=== PATIENT | female | born 1970 | race Caucasian/White ===

== ENCOUNTER 2019-10-20 11:25 | Emergency (ER) | payer OTHER, SELFPAY ==
[2019-10-20 11:44] VITALS: BP 133/88; PULSE 75; RESP 16; TEMP 36.9; O2SAT 100
--- NOTE | 2019-10-20 11:44 | ED.EYEPROB ---
HPI - Eye Problem General Chief complaint: Eye Problems Stated complaint: right pink eye/itchy History of Present Illness HPI Narrative: This is a 49-year-old female comes in complaining of left conjunctivitis patient states that she had a virtual visit with her primary care provider on Monday was prescribed tobramycin. Patient states that the symptoms have not gotten any better woke up this morning her eyes itchy still swollen and red and draining. Patient states she had to use a warm washcloth so that she was able to open her eye patient wanted to make sure that she did not need a different kind of medication because she did not feel like this was working and I was getting worse Related Data Home Medications Medication Instructions Recorded Confirmed hydroxyzine HCl 25 mg tablet 25 mg PO BID PRN tablet 07/26/19 carbamazepine mg PO 10/20/19 clonazepam 10/20/19 levothyroxine 10/20/19 sertraline mg 10/20/19 tobramycin 10/20/19 triamterene-hydrochlorothiazid tablet 10/20/19 Allergies Allergy/AdvReac Type Severity Reaction Status Date / Time Penicillins Allergy Intermediate Rash Verified 10/18/19 14:47 Review of Systems Review of Systems: Narrative: CONSTITUTIONAL: Denies fever, chills, or sweats. EYES: Reports visual changes, redness, or discharge. ENT: Denies rhinorrhea, congestion, sore throat, or otalgia. CARDIOVASCULAR:Denies chest pain, palpitations, or edema. RESPIRATORY: Denies cough or dyspnea. GASTROINTESTINAL: Denies abdominal pain, nausea, vomiting, or diarrhea. GENITOURINARY: Denies dysuria or hematuria. SKIN:[Denies rash or itching. MUSCULOSKELETAL:Denies back pain, joint pain, or myalgia. NEUROLOGIC: Denies headache, numbness, or weakness. PSYCHIATRIC:Denies anxiety or depression [facility] Past Medical History Medical History (Updated 10/20/19 @ 11:53 by Carolina Lechuga NP) Annual visit for general adult medical examination with abnormal findings (~2013) Generalized anxiety disorder (~2008) Left foot pain (~08/11/15) Surgical History Surgical History (System 10/09/19 @ 17:25 by Aziza Morales) History of thyroidectomy, total (~2001) S/P thyroidectomy (~2001) Family History Family History (System 10/09/19 @ 17:25 by Aziza Morales) Mother Family history of atrial fibrillation, Onset Age: 72 Father Hypertension Heart valve replaced, Onset Age: 72 Social History Social History (System 10/09/19 @ 17:25 by Aziza Morales) Social History: smoking 2-10 cigarettes/day since ~2000 Smoking packs per day: 0.5 Smoking cigarettes per day: 10.0 Years smoked: 19 Smoking pack-years: 9.50 Smoking status: Current every day smoker Tobacco type: cigarettes Second hand tobacco smoke exposure: No Alcohol intake: never Substance use: never Substance use type: does not use Additional living arrangements comments: daughter, single mom; sexually active; has advance directive (per 10/02/2018 health hx form) Gender identity (if verbalized by the patient): Female Spiritual care concerns: No Agree to blood products: Yes Comments At time as signature, I have reviewed and agree with nursing past medical, social, surgical and family history. Please see nursing chart for further information. There is no relevant family history pertinent to the presenting complaint. Exam Narrative: Exam Narrative: GENERAL:Well-appearing, well-nourished, and in no acute distress. HEAD:Normocephalic, atraumatic. EYES: PERRLA and EOMI. left erythema with periorbital slight swelling, clear to yellowish drainage ENT: Nares clear, no rhinorrhea or epistaxis. Mucous membranes moist. NECK: Supple. CHEST: Clear to auscultation. No respiratory distress. HEART: Regular rate and rhythm. No murmur heard. Normal peripheral pulses. ABDOMEN: Soft, nontender, nondistended, normal active bowel sounds. EXTREMITIES: Normal range of motion. No edema. SKIN: Warm, dry, no rash. CON[facility]
== END 2019-10-20 11:55 | disposition home or self-care (01) ==
PROVIDERS: Emergency Provider Nurse Practitioner Family; PCP Family Medicine
DX: H10.31 Unspecified acute conjunctivitis, right eye (principal); F17.210 Nicotine dependence, cigarettes, uncomplicated; E89.0 Postprocedural hypothyroidism; I10 Essential (primary) hypertension; Z85.850 Personal history of malignant neoplasm of thyroid
CPT/HCPCS: 99213; G0463

== ENCOUNTER 2020-06-29 15:08 | Outpatient (CLI) | payer OTHER, SELFPAY ==
[2020-06-29 16:01] LABS: Alanine Aminotransferase 21 U/L (4-35); Albumin Level 4.5 g/dL (3.5-5.1); Alkaline Phosphatase 98 U/L (38-126); Anion Gap 6 mmol/L (8-16); Aspartate Amino Transferase 27 U/L (14-36); Bilirubin,Total 0.4 mg/dL (0.2-1.3); Blood Urea Nitrogen 20 mg/dL (7-17); Calcium 9.4 mg/dL (8.4-10.2); Carbon Dioxide 32 mmol/L (22-30); Chloride 102 mmol/L (98-107); Cholesterol 252 mg/dL (0-200); Estimated Glomerular Filt Rate > 60; Glucose 110 mg/dL (65-105); HDL Direct 78 mg/dL; Potassium 3.9 mmol/L (3.4-5.0); Sodium 140 mmol/L (137-145); Triglycerides 142 mg/dL (<150)
[2020-06-29 16:12] LABS: LDL Cholesterol Direct 150 mg/dL
[2020-06-29 16:29] LABS: Free T4 Free Thyroxine 1.15 ng/mL (0.78-2.19)
[2020-06-29 16:31] LABS: Thyroid Stimulating Hormone 0.034 uIU/mL (0.465-4.680)
[2020-07-02 06:08] LABS: Vitamin D 1,25 (OH)2 Total 44 pg/mL (18-72); Vitamin D2 1,25 (OH)2 <8 pg/mL; Vitamin D3 1,25 (OH)2 44 pg/mL
== END 2020-06-29 15:09 | disposition home or self-care (01) ==
PROVIDERS: PCP Family Medicine; Visit Provider Nurse Practitioner Family
DX: E55.9 Vitamin D deficiency, unspecified (principal); I10 Essential (primary) hypertension; E03.9 Hypothyroidism, unspecified; E78.5 Hyperlipidemia, unspecified; E07.9 Disorder of thyroid, unspecified
CPT/HCPCS: 36415; 80053; 80061; 82652; 84439; 84443

== ENCOUNTER 2020-07-16 06:54 | Outpatient (NON) | payer OTHER, SELFPAY ==
[2020-07-16 21:48] LABS: SARS-CoV-2 RNA PCR Negative
== END 2020-07-16 06:55 ==
LOC: ANHCOVIDDT 07:00
PROVIDERS: PCP Family Medicine; Visit Provider Nurse Practitioner
DX: R68.89 Other general symptoms and signs (principal); Z20.828 Contact with and (suspected) exposure to other viral communicable diseases
CPT/HCPCS: 87635; C9803; U0003

== ENCOUNTER 2021-03-17 08:14 | Emergency (ER) | payer OTHER, SELFPAY ==
[2021-03-17 08:24] VITALS: BP 127/81; PULSE 79; RESP 16; TEMP 36.7; O2SAT 99
--- NOTE | 2021-03-17 08:30 | ED.URI ---
HPI - URI/Sore Throat General Chief Complaint: Upper Respiratory Infection Stated Complaint: sore throat Time Seen by Provider: 03/17/21 08:30 Source: patient Mode of arrival: ambulatory Limitations: no limitations History of Present Illness HPI Narrative: Ruthie Clark is a 51 yo female with PMH of hypertension , hypothyroid , obstructive sleep apnea ,[facility] of symptoms of sore throat and increasing swollen lymph glands. she states that she started to have symptoms on Monday and it gradually worsened; hard to swallow, no fever, states she is only able to eat broth and drink water Related Data Home Medications Medication Instructions Recorded Confirmed levothyroxine 200 mcg tablet 200 mcg PO DAILY tablet 03/15/21 03/17/21 triamterene 37.5 1 tablet PO DAILY tablet 03/15/21 03/17/21 mg-hydrochlorothiazide 25 mg tablet Allergies Allergy/AdvReac Type Severity Reaction Status Date / Time Penicillins Allergy Intermediate Rash Verified 03/15/21 15:18 Review of Systems Review of Systems: CONSTITUTIONAL: Denies fever, chills, sweats. EYES: Denies visual changes, redness, discharge. ENT: Denies rhinorrhea, congestion, has sore throat, otalgia. Has swollen submandibular lymph node CARDIOVASCULAR: Denies chest pain, palpitations, edema. RESPIRATORY: Denies dyspnea, wheezing, cough GASTROINTESTINAL: Denies abdominal pain, nausea, vomiting, diarrhea. GENITOURINARY: Denies dysuria, hematuria, abnormal discharge SKIN: Denies rash or itching. NEUROLOGIC: Denies numbness, or focal weakness. PSYCHIATRIC: Denies anxiety or depression. [facility] Past Medical History Medical History (Updated 03/17/21 @ 08:55 by Amina Bai CNP) Class 2 severe obesity with serious comorbidity and body mass index (BMI) of 36.0 to 36.9 in adult (~2001) Dependence on other enabling machines and devices (~2015) Disorder of thyroid, unspecified (~2001) Essential (primary) hypertension (~2008) Generalized anxiety disorder (~2008) Hypothyroidism, unspecified (~2001) Left foot pain (~08/11/15) Major depress, part remis (~2008) Nicotine dependence, unspecified, uncomplicated (~2009) PETE on CPAP (~01/11/16) sleep study: 01/11/2016: ESS: 10; AHI: 9; 43 snoring events; 60 O2 desaturations: index=8; 63 inches: 196#; BMI 34.7 Seizure disorder (~1978) Surgical History Surgical History History of thyroidectomy, total (~2001) S/P thyroidectomy (~2001) Family History Family History Mother Family history of atrial fibrillation, Onset Age: 72 Father Hypertension Heart valve replaced, Onset Age: 72 Social History Social History Social History: smoking 2-10 cigarettes/day since ~1999 Smoking packs per day: 0.5 Smoking cigarettes per day: 10.0 Years smoked: 19 Smoking pack-years: 9.50 Smoking status: Current every day smoker Tobacco type: cigarettes Second hand tobacco smoke exposure: No Alcohol intake: never Substance use: never Substance use type: does not use Additional living arrangements comments: daughter, single mom; sexually active; has advance directive (per 10/02/2018 health hx form) Gender identity (if verbalized by the patient): Female Spiritual care concerns: No Agree to blood products: Yes Comments At time of signature, I agree with nursing past medical, surgical, social and family history. There is no relevant family history pertinent to the presenting complaint. Exam Narrative: GENERAL: This is a well-nourished, well-developed patient, in mild distress. HEAD: normocephalic, atraumatic. EYES: Sclera clear/white. Vision is grossly intact. EARS: External ears normal, . Hearing grossly intact. Ear canals clear NOSE: External nose normal without nasal discharge, nares without redness, no rhinorrhea. THRO
[2021-03-17] MEDS: predniSONE 20 MG TABLET 60 MG PO (09:05)
== END 2021-03-17 09:08 | disposition home or self-care (01) ==
PROVIDERS: Emergency Provider Nurse Practitioner
DX: J02.9 Acute pharyngitis, unspecified (principal); F17.210 Nicotine dependence, cigarettes, uncomplicated; G47.30 Sleep apnea, unspecified; I10 Essential (primary) hypertension; E03.9 Hypothyroidism, unspecified; E07.9 Disorder of thyroid, unspecified; F41.1 Generalized anxiety disorder; F32.9 Major depressive disorder, single episode, unspecified; G40.909 Epilepsy, unspecified, not intractable, without status epilepticus
CPT/HCPCS: 87081; 87880; 99213; G0463; J7512

== ENCOUNTER → 2021-03-18 08:52 | Outpatient (CLI) | payer OTHER, SELFPAY ==
[2021-03-19 18:14] LABS: SARS-CoV-2 RNA PCR Negative
== END ==
PROVIDERS: PCP Family Medicine; Visit Provider Family Medicine
DX: J02.9 Acute pharyngitis, unspecified (principal); Z20.822 Contact with and (suspected) exposure to COVID-19
CPT/HCPCS: C9803; U0003; U0005

== ENCOUNTER 2021-03-23 16:36 | Outpatient (CLI) | payer OTHER, SELFPAY ==
--- NOTE | ~2021-03-23 | MM_ITS ---
EXAMINATION: MM screening cameron BI w carlene HISTORY: Screening mammogram TECHNIQUE: Craniocaudal and mediolateral oblique 3-D tomosynthesis images were obtained and synthetic 2-D images were generated. CAD analysis was submitted and interpreted. COMPARISON: 08/22/2018, 03/10/2015, 10/15/2013 bilateral digital screening mammogram examinations BREAST PARENCHYMAL COMPOSITION: The breasts are heterogeneously dense, which may obscure small masses . FINDINGS: There is no evidence of suspicious mass, calcification, or architectural distortion to sugg est malignancy in either breast. There has been no suspicious interval change. IMPRESSION: 1. No mammographic evidence of malignancy. 2. Recommend routine screening mammography in one year. BI-RADS Category 1: Negative Reviewed, dictated and finalized at location A.
--- NOTE | ~2021-03-23 | US_ITS ---
EXAMINATION: US pelvic complete w TV DATE: 03/23/2021 17:36 INDICATION: Pelvic pain Comparison:No prior studies for comparison. TECHNIQUE: Multiple transabdominal and endovaginal sonographic images of the pelvis performed. FINDINGS: The uterus measures 5.7 x 4.1 x 5.1 cm. There are multiple hypoechoic masses of the uterus, consistent with fibroids, largest measuring 2.6 cm. The endometrial complex measures 4 mm. The right ovary measures 3.2 x 2.5 x 2.2 cm and the left ovary measures 3.2 x 3.3 x 3.4 cm. There are follicular changes. There is a 3.1 cm left ovarian cyst. There is no free fluid in the pelvis. There are no abnormal masses seen on either side. IMPRESSION: 1. Left ovarian cyst measuring 3.1 cm. 2: Uterine fibroids, largest measuring 2.6 cm maximum dimension. Reviewed, dictated and finalized at location A.
== END 2021-03-23 16:37 | disposition home or self-care (01) ==
LOC: ANHIMG 16:37
PROVIDERS: PCP Family Medicine; Visit Provider Nurse Practitioner
DX: Z12.31 Encounter for screening mammogram for malignant neoplasm of breast (principal); R10.2 Pelvic and perineal pain; N83.202 Unspecified ovarian cyst, left side; D25.9 Leiomyoma of uterus, unspecified
CPT/HCPCS: 76830; 76856; 77063; 77067

== ENCOUNTER 2021-07-02 07:50 | Outpatient (CLI) | payer OTHER, SELFPAY ==
[2021-07-02 08:09] LABS: Basophils Percent Auto 0.6 % (0.2-1.2); Eosinophils Absolute Auto 0.1 K/mm3 (0-0.3); Hematocrit 41.5 % (37.0-47.0); Hemoglobin 13.7 g/dL (12.0-15.0); Immature Granulocyte Absolute 0.02 K/mm3 (0.00-0.031); Immature Granulocyte Percent A 0.4 % (0-0.5); Lymphocytes Absolute Auto 2.19 K/mm3 (0.9-3.2); Mean Corpuscular Hemoglobin 29.4 pg (26-34); Mean Corpuscular Volume 89.1 fl (80-100); Mean Platelet Volume 9.7 fl (7.4-10.4); Monocytes Absolute Auto 0.4 K/mm3 (0.1-0.6); Monocytes Percent Auto 7.9 % (2.6-8.5); Neutrophils Absolute Auto 2.4 K/mm3 (1.3-6.7); Neutrophils Percent Auto 46.1 % (45.5-73.1); Platelet Count Result 237 k/mm3 (150-375); Red Blood Count 4.66 M/mm3 (4.2-5.4); White Blood Count 5.1 K/mm3 (4.5-10.0)
[2021-07-02 08:22] LABS: Alanine Aminotransferase 18 U/L (4-35); Albumin Level 4.2 g/dL (3.5-5.1); Alkaline Phosphatase 101 U/L (38-126); Anion Gap 8 mmol/L (8-16); Aspartate Amino Transferase 21 U/L (14-36); Bilirubin,Total 0.3 mg/dL (0.2-1.3); Blood Urea Nitrogen 18 mg/dL (7-17); Calcium 9.3 mg/dL (8.4-10.2); Carbon Dioxide 26 mmol/L (22-30); Chloride 106 mmol/L (98-107); Cholesterol 260 mg/dL (0-200); Estimated Glomerular Filt Rate > 60; Glucose 107 mg/dL (65-110); HDL Direct 62 mg/dL; Sodium 140 mmol/L (137-145); Triglycerides 207 mg/dL (<150)
[2021-07-02 08:33] LABS: LDL Cholesterol Direct 138 mg/dL
[2021-07-02 09:06] LABS: Vitamin D 25 Hydroxy 42.3 ng/mL
[2021-07-02 09:19] LABS: Thyroid Stimulating Hormone Reflex < 0.015 uIU/mL (0.465-4.68)
[2021-07-02 10:02] LABS: Free T4 Free Thyroxine Reflex 1.17 ng/dL (0.78-2.19)
[2021-07-02 13:07] LABS: Total Triiodothyronine (T3) 1.33 NG/ML (0.97-1.69)
== END 2021-07-02 07:51 | disposition home or self-care (01) ==
LOC: ANHLAB 07:53
PROVIDERS: PCP Family Medicine; Visit Provider Family Medicine
DX: E55.9 Vitamin D deficiency, unspecified (principal); E03.9 Hypothyroidism, unspecified; G40.909 Epilepsy, unspecified, not intractable, without status epilepticus; E78.5 Hyperlipidemia, unspecified; I10 Essential (primary) hypertension; Z00.00 Encounter for general adult medical examination without abnormal findings
CPT/HCPCS: 36415; 80053; 80061; 82306; 84439; 84443; 84480; 85025

== ENCOUNTER 2021-09-20 00:05 | Day surgery (SDC) | payer OTHER, SELFPAY ==
[2021-09-08 14:25] VITALS: BMI 32.8
--- NOTE | 2021-09-19 11:08 | WPDANESEPP ---
Anes - Eval Pre Procedure Procedure: Operation Date: 09/20/21 09:30 Proposed Procedures p Screening Colonoscopy - Tony Marcano MD Date/Time: 09/19/21 11:08 Pre Op Diagnosis: neoplasm screening Patient Data Age: 51 Gender: F Height: 1.6 m Weight: 84 kg Allergies Allergy/AdvReac Type Severity Reaction Status Date / Time Penicillins Allergy Intermediate Rash Verified 09/08/21 14:20 Home Medications Medication Instructions Recorded Confirmed Type triamterene 37.5 1 tablet PO DAILY #90 tablet 04/27/21 09/08/21 Rx mg-hydrochlorothiazide 25 mg tablet atorvastatin 10 mg tablet 10 mg PO QHS #90 tablet 07/05/21 09/08/21 Rx carbamazepine 200 mg 400 mg PO Q12H #360 cap 07/12/21 09/08/21 Rx capsule,extended release [id number] levothyroxine 200 mcg tablet 200 mcg PO DAILY #90 tablet 07/26/21 09/08/21 Rx clonazepam 2 mg tablet 1 mg PO BID PRN #90 tablet 08/02/21 09/08/21 Rx sertraline 100 mg tablet 100 mg PO BID #180 tablet 08/02/21 09/08/21 Rx cyclobenzaprine 5 mg tablet See Rx Instructions PO TID PRN 09/01/21 09/08/21 Rx #180 tablet hydroxyzine HCl 25 mg PO DAILY 09/08/21 09/08/21 History Patient hx anesthesia problems: none Family hx anesthesia problems: none Results Review: All pre-operative results and documents have been reviewed as part of the pre-operative evaluation. [facility], [facility] Past Medical History Medical History (Updated 09/19/21 @ 11:12 by Zonia Silva CRNA) Chronic low back pain Dependence on other enabling machines and devices (~2015) Dyslipidemia Essential (primary) hypertension (~2008) Generalized anxiety disorder (~2008) History of thyroid cancer Hypothyroidism, unspecified (~2001) Left foot pain (~08/11/15) Major depress, part remis (~2008) Nicotine dependence, unspecified, uncomplicated (~2009) PETE (obstructive sleep apnea) PETE on CPAP (~01/11/16) sleep study: 01/11/2016: ESS: 10; AHI: 9; 43 snoring events; 60 O2 desaturations: index=8; 63 inches: 196#; BMI 34.7 Seizure disorder (~1978) petite mal Surgical History Surgical History History of thyroidectomy, total (~2001) Family History Family History Mother Family history of atrial fibrillation, Onset Age: 72 Father Hypertension Heart valve replaced, Onset Age: 72 Social History Social History Social History: smoking 2-10 cigarettes/day since ~1999 Smoking packs per day: 0.25 Smoking cigarettes per day: 5.0 Years smoked: 15 Smoking pack-years: 3.75 Smoking status: Current every day smoker Tobacco type: cigarettes Second hand tobacco smoke exposure: No Alcohol intake: never Substance use: never Substance use type: does not use Additional living arrangements comments: daughter, single mom; sexually active; has advance directive (per 10/02/2018 health hx form) Gender identity (if verbalized by the patient): Female Spiritual care concerns: No Agree to blood products: Yes Exam Day of Procedure 09/19/21 11:08
[2021-09-20 08:30] VITALS: BP 130/80; PULSE 77; RESP 20; TEMP 36.4; O2SAT 100; BMI 33.2
[2021-09-20] MEDS: LACTATED RINGERS 1,000 ML 150 ML IV CONT (08:48)
--- NOTE | 2021-09-20 08:57 | WPDGICN ---
Assessment and Plan Assessment and plan (1) Encounter for screening colonoscopy: Code(s): Z12.11 - Encounter for screening for malignant neoplasm of colon Status: Acute Assessment and Plan: Patient presents for screening colonoscopy. Appears to be at average risk for colon polyps. Further recommendations may be given after endoscopy. GI Consult Note Consult date/time: 09/20/21 08:57 HPI: Ruthie Clark is a 51 year old female Presents for screening colonoscopy. Patient's current weight appetite and bowel movements are normal. She denies abdominal pain. She has had no bleeding. Family history is noncontributory. [facility] Past Medical History Medical History (Updated 09/20/21 @ 08:58 by Tony Marcano MD) Chronic low back pain Dependence on other enabling machines and devices (~2015) Dyslipidemia Essential (primary) hypertension (~2008) Generalized anxiety disorder (~2008) History of thyroid cancer Hypothyroidism, unspecified (~2001) Left foot pain (~08/11/15) Major depress, part remis (~2008) Nicotine dependence, unspecified, uncomplicated (~2009) PETE (obstructive sleep apnea) PETE on CPAP (~01/11/16) sleep study: 01/11/2016: ESS: 10; AHI: 9; 43 snoring events; 60 O2 desaturations: index=8; 63 inches: 196#; BMI 34.7 Seizure disorder (~1978) petite mal Surgical History Surgical History History of thyroidectomy, total (~2001) Family History Family History Mother Family history of atrial fibrillation, Onset Age: 72 Father Hypertension Heart valve replaced, Onset Age: 72 Social History Social History Social History: smoking 2-10 cigarettes/day since ~1999 Smoking packs per day: 0.25 Smoking cigarettes per day: 5.0 Years smoked: 15 Smoking pack-years: 3.75 Smoking status: Current every day smoker Tobacco type: cigarettes Second hand tobacco smoke exposure: No Alcohol intake: never Substance use: never Substance use type: does not use Living arrangements: with family Additional living arrangements comments: daughter, single mom; sexually active; has advance directive (per 10/02/2018 health hx form) Gender identity (if verbalized by the patient): Female Spiritual care concerns: No Agree to blood products: Yes Meds Home Medications and Allergies Home Medications Medication Instructions Recorded Confirmed Type triamterene 37.5 1 tablet PO DAILY #90 tablet 04/27/21 09/08/21 Rx mg-hydrochlorothiazide 25 mg tablet atorvastatin 10 mg tablet 10 mg PO QHS #90 tablet 07/05/21 09/08/21 Rx carbamazepine 200 mg 400 mg PO Q12H #360 cap 07/12/21 09/08/21 Rx capsule,extended release [id number] levothyroxine 200 mcg tablet 200 mcg PO DAILY #90 tablet 07/26/21 09/08/21 Rx clonazepam 2 mg tablet 1 mg PO BID PRN #90 tablet 08/02/21 09/08/21 Rx sertraline 100 mg tablet 100 mg PO BID #180 tablet 08/02/21 09/08/21 Rx cyclobenzaprine 5 mg tablet See Rx Instructions PO TID PRN 09/01/21 09/08/21 Rx #180 tablet hydroxyzine HCl 25 mg PO DAILY 09/08/21 09/08/21 History Allergies Allergy/AdvReac Type Severity Reaction Status Date / Time Penicillins Allergy Intermediate Rash Verified 09/20/21 08:27 Vital Signs Vital Signs - 24 hr 09/20/21 08:30 Temperature 97.5 F L Pulse Rate 77 Respiratory Rate 20 Blood Pressure 130/80 Pulse Oximetry 100 Exam Narrative: Physical exam reveals patient to be alert. Vital signs stable. HEENT exam is unremarkable. Patient is anicteric. Lungs are clear to auscultation and percussion. Heart is without murmur or extra sounds. Abdominal exam bowel sounds are present soft nontender with no hepatosplenomegaly. Digital external rectal exam is normal.
--- NOTE | 2021-09-20 09:00 | WPDANESEFPP ---
Anes - Eval Final PreProcedure Day of Procedure 09/20/21 09:00 Patient weight: obese Heart: regular rate and rhythm Lungs: clear to auscultation and normal air movement Airway: Mallampati scale class II Neurological: alert and oriented Last oral intake: >/= 8 hours ASA classification: III Emergent: no Anesthetic plan: proceed Anesthesia type and monitoring: general GIVS and standard monitoring Results Review: All pre-operative results and documents have been reviewed as part of the pre-operative evaluation. Informed Consent: The patient's anesthetic plan and its attendant risks and benefits were discussed with the patient/family/POA. Questions were solicited and answers provided to the satisfaction of the patient/family/POA.
[2021-09-20 09:43] VITALS: BP 107/68; PULSE 66; RESP 18; O2SAT 100
[2021-09-20 09:53] VITALS: BP 116/71; PULSE 64; RESP 15; O2SAT 100
[2021-09-20 10:03] VITALS: BP 137/87; PULSE 68; RESP 19; O2SAT 100
== END 2021-09-20 10:10 | disposition home or self-care (01) ==
PROVIDERS: PCP Family Medicine; Visit Provider Internal Medicine Gastroenterology
PROC: 0DJD8ZZ Inspection of Lower Intestinal Tract, Via Natural or Artificial Opening Endoscopic (ICD-10-PCS; CPT 45378; principal; 2021-09-20 09:30)
DX: Z12.11 Encounter for screening for malignant neoplasm of colon (principal); K62.1 Rectal polyp; K64.8 Other hemorrhoids; E66.9 Obesity, unspecified; Z68.33 Body mass index [BMI] 33.0-33.9, adult; E78.5 Hyperlipidemia, unspecified; I10 Essential (primary) hypertension; F41.1 Generalized anxiety disorder; Z85.850 Personal history of malignant neoplasm of thyroid; F32.9 Major depressive disorder, single episode, unspecified; G47.33 Obstructive sleep apnea (adult) (pediatric); G40.909 Epilepsy, unspecified, not intractable, without status epilepticus; E89.0 Postprocedural hypothyroidism; F17.210 Nicotine dependence, cigarettes, uncomplicated
CPT/HCPCS: 45380; 88305; J2704; J7120

== ENCOUNTER 2021-10-09 14:09 | Emergency (ER) | payer OTHER, SELFPAY ==
--- NOTE | ~2021-10-09 | XR_ITS ---
EXAMINATION: XR knee RT min 4V EXAM DATE: 10/09/2021 14:51 INDICATION: No known recent injury provided at this time. Pain of the right knee medially TECHNIQUE: Right knee frontal, crosstable lateral, orthogonal oblique projections for interpretation . There is no prior study for comparison. FINDINGS: No evidence osteochondral defect or joint body in the right knee joint. There are no acut e fractures or dislocations identified. There is no subcutaneous gas. The soft tissue is unremarkab le. There are no radiopaque foreign bodies. IMPRESSION: 1. Unremarkable XR knee RT min 4V exam. Reviewed, dictated and finalized at location G.
[2021-10-09 14:13] VITALS: BP 153/91; PULSE 82; RESP 16; TEMP 36.2; O2SAT 100
--- NOTE | 2021-10-09 14:41 | ED.LOWEXIN ---
HPI - Extremity Injury (Lower) General Chief Complaint: Extremity Injury, Lower Stated Complaint: right knee pain Time Seen by Provider: 10/09/21 14:20 Source: patient Mode of arrival: ambulatory Limitations: no limitations History of Present Illness HPI Narrative: 51-year-old female with history of hypertension, dyslipidemia, petite mal seizures, hypothyroidism status post total thyroidectomy, anxiety, chronic low back pain presents today with complaints of right knee pain that started morning when she woke up. Patient states on Monday she did slip on a rug but did not fall. Patient denies pain anywhere else. Patient states aggravated with certain movements and palpation. Range of motion at current time is normal. Denies tingling and numbness to extremity. Related Data Home Medications Medication Instructions Recorded Confirmed hydroxyzine HCl 25 mg PO DAILY 09/08/21 09/20/21 Allergies Allergy/AdvReac Type Severity Reaction Status Date / Time Penicillins Allergy Intermediate Rash Verified 09/20/21 14:53 Review of Systems Review of Systems: CONSTITUTIONAL: Denies fever, chills, or sweats. EYES: Denies visual changes, redness, or discharge. ENT: Denies rhinorrhea, congestion, sore throat, or otalgia. CARDIOVASCULAR: Denies chest pain, palpitations, or edema. RESPIRATORY: Denies cough or dyspnea. GASTROINTESTINAL: Denies abdominal pain, nausea, vomiting, or diarrhea. GENITOURINARY: Denies dysuria or hematuria. SKIN: Denies rash or itching. MUSCULOSKELETAL: Right knee pain denies back pain or myalgia. NEUROLOGIC: Denies headache, numbness, dizziness, or weakness. PSYCHIATRIC: Denies anxiety or depression. [facility] Past Medical History Medical History Chronic low back pain Dependence on other enabling machines and devices (~2015) Dyslipidemia Essential (primary) hypertension (~2008) Generalized anxiety disorder (~2008) History of thyroid cancer Hypothyroidism, unspecified (~2001) Left foot pain (~08/11/15) Major depress, part remis (~2008) Nicotine dependence, unspecified, uncomplicated (~2009) PETE (obstructive sleep apnea) PETE on CPAP (~01/11/16) sleep study: 01/11/2016: ESS: 10; AHI: 9; 43 snoring events; 60 O2 desaturations: index=8; 63 inches: 196#; BMI 34.7 Seizure disorder (~1978) petite mal Surgical History Surgical History History of thyroidectomy, total (~2001) Family History Family History Mother Family history of atrial fibrillation, Onset Age: 72 Father Hypertension Heart valve replaced, Onset Age: 72 Social History Social History Social History: smoking 2-10 cigarettes/day since ~1999 Smoking packs per day: 0.25 Smoking cigarettes per day: 5.0 Years smoked: 15 Smoking pack-years: 3.75 Tobacco type: cigarettes Second hand tobacco smoke exposure: No Alcohol intake: never Substance use: never Substance use type: does not use Additional living arrangements comments: daughter, single mom; sexually active; has advance directive (per 10/02/2018 health hx form) Gender identity (if verbalized by the patient): Female Spiritual care concerns: No Agree to blood products: Yes Exam Narrative: GENERAL: Well-appearing, well-nourished, and in no acute distress. HEAD: Normocephalic, atraumatic. EYES: PERRLA and EOMI. NECK: Supple. No adenopathy or masses. CHEST: Clear to auscultation. No respiratory distress. No wheezes rales or rhonchi HEART: Regular rate and rhythm. No murmur heard. Normal peripheral pulses. EXTREMITIES: Tenderness to right medial knee. Patellar stable. Anterior posterior drawer negative. Normal range of motion. No edema. SKIN: Warm, dry, no rash. NEURO: No focal deficits. Alert and oriented x3. PSYCH: Normal mood and a
[2021-10-09] MEDS: ACETAMINOPHEN 500 MG TABLET 1000 MG PO (15:28)
[2021-10-09] MEDS: KETOROLAC 10 MG TABLET PO (15:28)
== END 2021-10-09 15:54 | disposition home or self-care (01) ==
PROVIDERS: Emergency Provider Nurse Practitioner Family; PCP Family Medicine
DX: M25.561 Pain in right knee (principal); I10 Essential (primary) hypertension; E78.5 Hyperlipidemia, unspecified; E89.0 Postprocedural hypothyroidism; Z85.850 Personal history of malignant neoplasm of thyroid; G47.33 Obstructive sleep apnea (adult) (pediatric); F17.210 Nicotine dependence, cigarettes, uncomplicated; F41.1 Generalized anxiety disorder; F32.4 Major depressive disorder, single episode, in partial remission
CPT/HCPCS: 73564; 99283; A9270

== ENCOUNTER 2021-10-20 08:12 | Outpatient (CLI) | payer OTHER, SELFPAY ==
[2021-10-20 08:44] LABS: Alanine Aminotransferase 19 U/L (4-35); Albumin Level 4.5 g/dL (3.5-5.1); Alkaline Phosphatase 121 U/L (38-126); Anion Gap 4 mmol/L (8-16); Aspartate Amino Transferase 26 U/L (14-36); Bilirubin,Total 0.3 mg/dL (0.2-1.3); Blood Urea Nitrogen 20 mg/dL (7-17); Calcium 8.6 mg/dL (8.4-10.2); Carbon Dioxide 28 mmol/L (22-30); Chloride 106 mmol/L (98-107); Cholesterol 234 mg/dL (0-200); Estimated Glomerular Filt Rate > 60; Glucose 98 mg/dL (65-110); HDL Direct 74 mg/dL; Sodium 138 mmol/L (137-145); Triglycerides 120 mg/dL (<150)
[2021-10-20 09:04] LABS: LDL Cholesterol Direct 112 mg/dL
[2021-10-20 09:21] LABS: Thyroid Stimulating Hormone Reflex 0.639 uIU/mL (0.465-4.68)
== END 2021-10-20 08:13 | disposition home or self-care (01) ==
LOC: ANHLAB 08:15
PROVIDERS: PCP Family Medicine; Visit Provider Family Medicine
DX: F41.1 Generalized anxiety disorder (principal); E03.9 Hypothyroidism, unspecified; I10 Essential (primary) hypertension; E78.5 Hyperlipidemia, unspecified
CPT/HCPCS: 36415; 80053; 80061; 84443

== ENCOUNTER 2021-10-25 13:58 | Outpatient (CLI) | payer OTHER, SELFPAY ==
[2021-10-25 14:22] LABS: Basophils Percent Auto 0.7 % (0.2-1.2); Eosinophils Absolute Auto 0.1 K/mm3 (0-0.3); Eosinophils Percent Auto 1.6 % (0-4.4); Hematocrit 41.6 % (37.0-47.0); Hemoglobin 13.9 g/dL (12.0-15.0); Immature Granulocyte Absolute 0.02 K/mm3 (0.00-0.031); Immature Granulocyte Percent A 0.3 % (0-0.5); Lymphocytes Absolute Auto 2.37 K/mm3 (0.9-3.2); Lymphocytes Percent Auto 41.4 % (18.3-44.2); Mean Corpuscular HGB Conc 33.4 g/dl (32-36); Mean Corpuscular Hemoglobin 29.8 pg (26-34); Mean Corpuscular Volume 89.3 fl (80-100); Mean Platelet Volume 9.9 fl (7.4-10.4); Monocytes Absolute Auto 0.3 K/mm3 (0.1-0.6); Monocytes Percent Auto 5.9 % (2.6-8.5); Neutrophils Absolute Auto 2.9 K/mm3 (1.3-6.7); Neutrophils Percent Auto 50.1 % (45.5-73.1); Platelet Count Result 290 k/mm3 (150-375); Red Blood Count 4.66 M/mm3 (4.2-5.4); Red Cell Distribution Width 13.5 % (11.5-14.5); White Blood Count 5.7 K/mm3 (4.5-10.0)
[2021-10-25 14:46] LABS: CRP 0.8 mg/dL (<1.0); Uric Acid 3.1 mg/dL (2.5-7.5)
[2021-10-25 15:06] LABS: Rheumatoid Factor < 8.6 IU/ML (<12)
[2021-10-25 15:08] LABS: Erythrocyte Sedimentation Rate 15 mm/hr (0-20)
== END 2021-10-25 13:59 | disposition home or self-care (01) ==
LOC: ANHLAB 14:02
PROVIDERS: PCP Family Medicine; Visit Provider Orthopaedic Surgery
DX: M17.0 Bilateral primary osteoarthritis of knee (principal)
CPT/HCPCS: 36415; 84550; 85025; 85652; 86038; 86140; 86430

== ENCOUNTER 2021-11-26 07:45 | Outpatient (RCR) | payer OTHER, SELFPAY ==
--- NOTE | 2021-11-02 17:06 | PTOPEVAL ---
Thank you for referring Ruthie Clark to [facility].? The patient is scheduled to be seen for therapy? 2 x/week for 3 weeks. Please review, sign, date and return this plan of care REZA. I agree with and certify that the following plan of care is medically necessary. Referring Physician Date Attending Provider: Jg Johnson MD Evaluation Information Problem Diagnosis right knee pain Onset 1 month Subjective Information She slipped on a rug 1 month Query Text:As Reported By Patient/ ago. 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 c/o increased swelling of knee with sitting. She reports limitations with steps, walking, steps, daily task, transfer, kneeling on knee, ADL's, household chore. She is unable to sleep due to pain. Denies any fitness program. Pain Assessment Right Knee(s) Reported Pain Level 7 Pain Description Aching,Throbbing Pain Frequency Acute Lowest Pain Intensity 7 Greatest Pain Intensity 10 Pain Aggravating Factors ADL's,Bending,Exercise/ Activity,Prolonged Position, Stair Climbing,Walking,Weight Bearing/Standing Lower Extremity Range of Motion Gross Lower Extremity Range of Motion right knee 0-115 dg Comments left knee: 0-125 dg Lower Extremity Muscle Strength Testing Gross Lower Extremity Strength left LE 5/5 except hip abd 3/5 Hip Strength Right Hip Flexion Strength 3+ Fair + Hip Extension Strength 3 Fair Hip Abduction Strength 3 Fair Knee Strength Right Knee Flexion Strength 3 Fair Knee Extension Strength 3+ Fair + Posture Standing Position Weight Distribution Weight Shifted Left,Decreased Wt.Bear on (R) Hip Posture (R) Externally Rotated Palpation Assessment Palpation right medial knee joint line, MCL, pes ansurine, inf patella Special Tests-Lower Extremity Hip Special Tests Trendelenburg Sign Positive Left,Positive Right Hip Special Test Comments SLS right: 20 sec, left: 24 sec Knee Special Tests Anterior Drawer Negative Right Valgus Stress Test Knee at 30 Degrees Positive Right Marito's Positive Right Patellofemoral Compression/Grind
--- NOTE | 2021-11-26 08:27 | PTOPEVAL ---
Physical Therapy Discharge Summary Thank you for referring Ruthie Clark to [facility] Ruthie was referred to therapy due to acute right knee pain. She has attended 7 therapy visits. She reports improved tolerance with walking, standing, steps, squats, ADL's, and daily task.She demonstrates normal right knee motion, improved right kne and hip motion and improved LE position and control with functional mobility. The [place] [employer] Osteoarthritis Index (WOMAC): 81.25% impaired at eval and 5% impaired at update. As a result of skilled therapy services Ruthie presents with improved pain, improved functional mobility, improved knee motion and strength. She has been provided a HEP and demonstrates understanding and compliance. She has met to partially met her therapy goals. She has reached maximal potential with skilled therapy services at this time. Recommend she f/u with her doctor due to continued medial knee pain. Will DC skilled therapy services at this time. Please review, sign, date and return this discharge summary REZA. I agree with and certify that the following plan of care is medically necessary. Referring Physician Date Attending Provider: Jg Johnson MD Diagnosis right knee pain Onset 1 month Subjective Information She has increased pain with Query Text:As Reported By Patient/ hip int rotation and stress on Family the inner knee region. She reports improved tolerance with walking, sitting and steps. She has not knelt on the knee yet. She will have increased pain at work with stand pivot movement on the right knee. Denies pain at night She props her leg up at work. She is performing HEP 5x/wk to 7x/wk Pain Assessment Right Knee(s) Reported Pain Level 3 Pain Description Aching,Throbbing Lowest Pain Intensity 2 Greatest Pain Intensity 3 Lower Extremity Range of Motion Gross Lower Extremity Range of Motion right knee 0-130 dg Comments Lower Extremity Muscle Strength Testing Hip Strength Right Hip Flexion Strength 4+ Good + Hip Extension Strength 4- Good - Hip Abduction Strength 3 Fair Knee Strength Right Knee Flexion Strength 4+ Good + Knee Extension Strength 4+ Good + Special Tests-Lower Extremity Hip Special Tests Trendelenburg Sign Negative Left,Positive Right Hip Special Test Comments SLS right: 30 sec, left: 30 sec functional squat: medial knee pain, hip adduction with hip valgus, forward weight shift Gait Assessment Gait Pattern Observed No Heel Strike - Left,No Heel
== END 2021-11-29 11:11 | disposition home or self-care (01) ==
LOC: ANHPT 07:45
PROVIDERS: PCP Family Medicine; Visit Provider Orthopaedic Surgery
DX: M25.561 Pain in right knee (principal)
CPT/HCPCS: 97035; 97110; 97112; 97140; 97161; 97530

== ENCOUNTER 2021-12-15 16:54 | Outpatient (CLI) | payer OTHER, MEDICAID, SELFPAY ==
--- NOTE | ~2021-12-15 | MR_ITS ---
EXAMINATION: MR knee RT wo con DATE: 12/15/2021 17:29 INDICATION: Right knee pain TECHNIQUE: Magnetic resonance imaging (MRI) of the affected knee was performed without intravenous co ntrast. Sequences included coronal PD-weighted FSE, coronal PD-weighted FS FSE, sagittal T2-weighted FSE, sagittal PD-weighted FS FSE and axial PD weighted fat saturated FSE. COMPARISON: None. FINDINGS: Medial compartment: Medial meniscus is normal. Mild chondral surface regularity along the anterior to central weightbeari ng medial femoral condyle. Small region of subarticular marrow edema at the posteromedial rim of the medial tibial plateau which could be due to was not apparent overlying chondromalacia. There is howev er subtle concavity to the articular cortex and ill-defined somewhat linear band of decreased signal underlying the articular cortex suspicious for a small stress versus insufficiency fracture. Lateral compartment: Lateral meniscus is normal. Small region of additional subarticular edema-like signal change associat ed with partial-thickness chondral fissuring at the anterior weightbearing lateral femoral condyle. R emaining cartilage in the medial compartment appears normal. Patellofemoral compartment: Partial-thickness chondral fissuring at the inferior aspect of the lateral patellar facet. Small deep chondral ulceration without degenerative subchondral changes at the inferior aspect of the medial tr ochlea. Ligaments and tendons: Anterior and posterior cruciate ligaments are normal. The medial collateral ligament and fibular ivis ateral ligament complex are normal. The extensor mechanism is normal side from small enthesophyte at the patellar insertion of the distal quadriceps tendon. The visualized medial and lateral hamstring t endons as well as the iliotibial band are normal. Fluid: Physiologic amount of fluid in the joint space. No loose osteochondral bodies identified. Osseous/other: Normal marrow signal aside from the previously noted small regions of subarticular edema-like signal change. No pathologic marrow replacing process. IMPRESSION: 1. Small focus of edema-like marrow signal change along the posterior medial rim of the medial tibial plateau with features suggesting a small subarticular insufficiency/stress fracture. Alternatively t his could be related to otherwise occult overlying chondromalacia. 2. Mild tricompartmental osteoarthritis with focal regions of chondromalacia as detailed above. Reviewed, dictated and finalized at location B. IMPRESSION: 1. Small focus of edema-like marrow signal change along the posterior medial ri m of the medial tibial plateau with features suggesting a small subarticular in sufficiency/stress fracture. Alternatively this could be related to otherwise o ccult overlying chondromalacia. 2. Mild tricompartmental osteoarthritis with focal regions of chondromalacia as detailed above.
== END 2021-12-15 16:55 | disposition home or self-care (01) ==
PROVIDERS: PCP Family Medicine; Visit Provider Orthopaedic Surgery
DX: M25.561 Pain in right knee (principal); M79.89 Other specified soft tissue disorders; M17.11 Unilateral primary osteoarthritis, right knee; M94.261 Chondromalacia, right knee
CPT/HCPCS: 73721

== ENCOUNTER 2022-01-26 07:04 | Outpatient (CLI) | payer OTHER, MEDICAID, SELFPAY ==
[2022-01-26 07:38] LABS: Hematocrit 43.5 % (37.0-47.0); Hemoglobin 14.1 g/dL (12.0-15.0); Mean Corpuscular HGB Conc 32.4 g/dl (32-36); Mean Corpuscular Hemoglobin 29.6 pg (26-34); Mean Corpuscular Volume 91.2 fl (80-100); Mean Platelet Volume 9.8 fl (7.4-10.4); Platelet Count Result 245 k/mm3 (150-375); Red Blood Count 4.77 M/mm3 (4.2-5.4); Red Cell Distribution Width 13.6 % (11.5-14.5); White Blood Count 6.4 K/mm3 (4.5-10.0)
[2022-01-26 08:22] LABS: Thyroid Stimulating Hormone 0.325 uIU/mL (0.465-4.680)
[2022-01-26 08:46] LABS: Free T4 Free Thyroxine 1.14 ng/mL (0.78-2.19); Vitamin D 25 Hydroxy 44.6 ng/mL
== END 2022-01-26 07:05 | disposition home or self-care (01) ==
PROVIDERS: PCP Family Medicine; Visit Provider Nurse Practitioner
DX: E55.9 Vitamin D deficiency, unspecified (principal); E03.9 Hypothyroidism, unspecified; R53.83 Other fatigue
CPT/HCPCS: 36415; 82306; 82607; 84439; 84443; 85027

== ENCOUNTER 2022-05-05 07:20 | Outpatient (CLI) | payer OTHER, MEDICAID, SELFPAY ==
[2022-05-05 07:53] LABS: Alanine Aminotransferase 24 U/L (6-35); Albumin Level 4.5 g/dL (3.5-5.1); Alkaline Phosphatase 110 U/L (38-126); Anion Gap 9 mmol/L (8-16); Aspartate Amino Transferase 22 U/L (14-36); Bilirubin,Total 0.3 mg/dL (0.2-1.3); Blood Urea Nitrogen 16 mg/dL (7-17); Calcium 9.2 mg/dL (8.4-10.2); Carbon Dioxide 26 mmol/L (22-30); Chloride 106 mmol/L (98-107); Estimated Glomerular Filt Rate > 60; Glucose 103 mg/dL (65-110); Potassium 3.7 mmol/L (3.4-5.0); Sodium 141 mmol/L (137-145)
[2022-05-05 08:00] LABS: NT Pro B Type Natriuretic Pept 211 pg/mL (5-100)
== END 2022-05-05 07:21 | disposition home or self-care (01) ==
PROVIDERS: PCP Family Medicine; Visit Provider Nurse Practitioner
DX: I10 Essential (primary) hypertension (principal); M79.89 Other specified soft tissue disorders
CPT/HCPCS: 36415; 80053; 83880

== ENCOUNTER 2022-05-25 07:04 | Outpatient (CLI) | payer OTHER, MEDICAID, SELFPAY ==
--- NOTE | 2022-05-25 14:45 | ECHO_ITS ---
Patient Info Name: Ruthie Clark Age: 52 years : 1970 Gender: Female Ht: 63 in Wt: 195 lbs BSA: 2.02 m2 HR: 75 bpm BP: 144 / 103 mmHg Technical Quality: Good Exam Date: 05/25/2022 3:23 PM Exam Location: [facility] Patient Status: Outpatient Admit Date: 05/25/2022 Staff Ordering Physician: Skylar Lan NP [employer] Second Operator: Ramy Gutierrez RDCS Attending Provider: Skylar Lan NP Referring Physician: Riky RIGGINS; Exam Type: CA echo doppler color flow Study Info Indications - other specified soft tissue disorders Complete two-dimensional, color flow and Doppler transthoracic echocardiogram is performed. Summary 1. Complete two-dimensional, color flow and Doppler transthoracic echocardiogram is performed. 2. Left ventricular chamber dimension is normal. 3. Left ventricular systolic function is normal, estimated at 60-65%. 4. The left ventricular diastolic function is grade I diastolic dysfunction. 5. E/e' 4 is not elevated. 6. Moderate lipomatous hypertrophy of the atrial septum. Left Ventricle E/e' 4 is not elevated. Left ventricular chamber dimension is normal. Left ventricular systolic function is normal, estimated at 60-65%. The left ventricular diastolic function is grade I diastolic dysfunction. Right Ventricle Right ventricular systolic function is normal and with normal TAPSE 2.1 cm. Right ventricular chamber dimension is normal. Left Atria Left atrial chamber dimension is normal. Right Atria Right atrial chamber dimension is normal. Atrial Septum Moderate lipomatous hypertrophy of the atrial septum. Aortic Valve The aortic valve is probable trileaflet. There is no aortic valve stenosis. There is no aortic valve regurgitation. Pulmonic Valve There is no pulmonic regurgitation. Mitral Valve There is no mitral valve stenosis. There is no mitral valve regurgitation. Tricuspid Valve There is no tricuspid valve regurgitation. Pericardium/Pleural There is no pericardial effusion. Inferior Vena Cava Normal inferior vena cava with >50% collapse upon inspiration consistent with normal right atrial pressure, 5 mmHg. Aorta The aortic root size at the sinus of Valsalva is normal. Left Ventricular Outflow Tract Name Value Normal LVOT 2D LVOT Diameter 2.0 cm LVOT Doppler LVOT Peak Gradient 5 mmHg LVOT Mean Gradient 3 mmHg LVOT VTI 21 cm LVOT VTI/AV VTI Ratio 1.0 LVOT Stroke Volume 62 ml LVOT CO 4.8 l/min LVOT CI 2.4 l/min/m2 Mitral Valve Name Value Normal MV Doppler MV Peak Gradient 2 mmHg MV Mean Gradient 1 mmHg
== END 2022-05-25 07:05 | disposition home or self-care (01) ==
LOC: ANHCARD 07:05
PROVIDERS: PCP Family Medicine; Visit Provider Nurse Practitioner
DX: M79.89 Other specified soft tissue disorders (principal); I51.7 Cardiomegaly
CPT/HCPCS: 93306

== ENCOUNTER 2022-05-27 15:40 | Outpatient (CLI) | payer OTHER, MEDICAID, SELFPAY ==
--- NOTE | ~2022-05-27 | MM_ITS ---
EXAMINATION: MM screening cameron BI w carlene HISTORY: Screening mammogram TECHNIQUE: Craniocaudal and mediolateral oblique 3-D tomosynthesis images were obtained and synthetic 2-D images were generated. Bilateral .Rotated lateral CC views. ......CAD analysis was submitted and interpreted. COMPARISON: 03/23/2021, , 03/10/2015 bilateral screening mammogram examinations BREAST PARENCHYMAL COMPOSITION: The breasts are heterogeneously dense, which may obscure small masses . FINDINGS: Stable fibroglandular asymmetry. There is no evidence of suspicious mass, calcification, or architectural distortion to suggest malignancy in either breast. There has been no suspicious interv al change. IMPRESSION: 1. No mammographic evidence of malignancy. 2. Recommend routine screening mammography in one year. BI-RADS Category 1: Negative Reviewed, dictated and finalized at location A. [facility]
== END 2022-05-27 15:41 | disposition home or self-care (01) ==
LOC: ANHIMG 15:43
PROVIDERS: PCP Family Medicine; Visit Provider Nurse Practitioner
DX: Z12.31 Encounter for screening mammogram for malignant neoplasm of breast (principal)
CPT/HCPCS: 77063; 77067

== ENCOUNTER 2022-05-31 15:38 | Outpatient (CLI) | payer OTHER, SELFPAY ==
--- NOTE | ~2022-05-31 | XR_ITS ---
XR lumbar spine 2-3V DATE: 05/31/2022 16:05 INDICATION: Right sciatica for 2 weeks. No known injury. TECHNIQUE: AP, lateral, coned lateral lumbosacral views COMPARISON: None FINDINGS: Prominent degenerative spurring at T11-12. There is mild degenerative disc disease at the lumbar interspaces. L5-S1 interspace is well preserved . There is prominent degenerative change at the apophyseal joints, with associated grade 1 anterolisthe sis at L4-5. No fracture or bone destruction. Included lower thoracic and lumbar pedicles are intact. The sacroiliac joints are intact. Prominent amount fecal material is noted in the colon. IMPRESSION: Grade 1 anterolisthesis at L4-5 due to degenerative change at the apophyseal joints Mild degenerative disc disease Reviewed, dictated and finalized at location A. [facility] [employer] [facility] IMPRESSION: Grade 1 anterolisthesis at L4-5 due to degenerative change at the a pophyseal joints Mild degenerative disc disease
== END 2022-05-31 15:39 | disposition home or self-care (01) ==
PROVIDERS: PCP Family Medicine; Visit Provider Family Medicine
DX: M54.31 Sciatica, right side (principal); M51.36 Other intervertebral disc degeneration, lumbar region
CPT/HCPCS: 72100

== ENCOUNTER 2022-07-04 07:07 | Outpatient (CLI) | payer OTHER, MEDICAID, SELFPAY ==
[2022-07-04 07:46] LABS: Cholesterol 194 mg/dL (0-200); HDL Direct 65 mg/dL; Triglycerides 126 mg/dL (<150)
[2022-07-04 07:57] LABS: LDL Cholesterol Direct 82 mg/dL
== END 2022-07-04 07:08 | disposition home or self-care (01) ==
PROVIDERS: PCP Family Medicine; Visit Provider Internal Medicine Cardiovascular Disease
DX: E78.5 Hyperlipidemia, unspecified (principal)
CPT/HCPCS: 36415; 80061

== ENCOUNTER 2022-11-16 06:47 | Outpatient (CLI) | payer OTHER, MEDICAID, SELFPAY ==
[2022-11-16 07:10] LABS: Basophils Percent Auto 0.7 % (0.2-1.2); Eosinophils Absolute Auto 0.1 K/mm3 (0-0.3); Eosinophils Percent Auto 1.1 % (0-4.4); Hematocrit 44.5 % (37.0-47.0); Hemoglobin 14.4 g/dL (12.0-15.0); Immature Granulocyte Absolute 0.02 K/mm3 (0.00-0.031); Immature Granulocyte Percent A 0.4 % (0-0.5); Lymphocytes Absolute Auto 1.91 K/mm3 (0.9-3.2); Lymphocytes Percent Auto 35.4 % (18.3-44.2); Mean Corpuscular HGB Conc 32.4 g/dl (32-36); Mean Corpuscular Volume 89.5 fl (80-100); Mean Platelet Volume 9.5 fl (7.4-10.4); Monocytes Absolute Auto 0.3 K/mm3 (0.1-0.6); Monocytes Percent Auto 5.7 % (2.6-8.5); Neutrophils Absolute Auto 3.1 K/mm3 (1.3-6.7); Neutrophils Percent Auto 56.7 % (45.5-73.1); Platelet Count Result 237 k/mm3 (150-375); Red Blood Count 4.97 M/mm3 (4.2-5.4); Red Cell Distribution Width 13.4 % (11.5-14.5); White Blood Count 5.4 K/mm3 (4.5-10.0)
[2022-11-16 07:26] LABS: Alanine Aminotransferase 27 U/L (6-35); Albumin Level 4.9 g/dL (3.5-5.1); Alkaline Phosphatase 120 U/L (38-126); Anion Gap 8 mmol/L (8-16); Aspartate Amino Transferase 24 U/L (14-36); Bilirubin,Total 0.5 mg/dL (0.2-1.3); Blood Urea Nitrogen 16 mg/dL (7-17); Calcium 9.9 mg/dL (8.4-10.2); Carbon Dioxide 30 mmol/L (22-30); Chloride 101 mmol/L (98-107); Cholesterol 213 mg/dL (0-200); Estimated Glomerular Filt Rate > 60; Glucose 115 mg/dL (65-110); HDL Direct 87 mg/dL; Potassium 4.1 mmol/L (3.4-5.0); Sodium 139 mmol/L (137-145)
[2022-11-16 07:30] LABS: LDL Cholesterol Direct 98 mg/dL
[2022-11-16 07:50] LABS: Thyroid Stimulating Hormone Reflex 0.137 uIU/mL (0.465-4.68)
[2022-11-16 08:15] LABS: Triglycerides 167 mg/dL (<150)
[2022-11-16 10:13] LABS: Free T4 Free Thyroxine Reflex 1.35 ng/dL (0.78-2.19)
[2022-11-16 11:31] LABS: Total Triiodothyronine (T3) 1.21 NG/ML (0.97-1.69)
[2022-11-16 16:30] LABS: Hemoglobin A1C 5.8 % (<5.7)
== END 2022-11-16 06:48 | disposition home or self-care (01) ==
PROVIDERS: PCP Family Medicine; Visit Provider Nurse Practitioner
DX: I10 Essential (primary) hypertension (principal); E03.9 Hypothyroidism, unspecified; E78.5 Hyperlipidemia, unspecified
CPT/HCPCS: 36415; 80053; 80061; 83036; 84439; 84443; 84480; 85025

== ENCOUNTER 2022-11-25 09:39 | Outpatient (CLI) | payer OTHER, MEDICAID, SELFPAY ==
--- NOTE | ~2022-11-25 | US_ITS ---
EXAMINATION: US_VDOPREFBI_US DATE: 11/25/2022 11:10 INDICATION: Chronic peripheral venous insufficiency. TECHNIQUE: Grayscale ultrasound images without and with compression and Doppler ultrasound images of the bilateral lower extremity veins were obtained. COMPARISON: None. FINDINGS: The visualized portions of right common femoral vein, profunda (deep) femoral vein, femoral vein, pop liteal vein, peroneal veins, posterior tibial veins, and greater saphenous vein outflow are patent. R ight greater saphenous vein measures 5 mm in the upper thigh, 3 mm in the lower thigh, and 2 mm in th e calf. No reflux. Right small saphenous vein measures 3 mm in the upper calf and 2 mm in the lower c custodial. No reflux. The visualized portions of left common femoral vein, profunda femoral vein, femoral vein, popliteal v ein, peroneal veins, posterior tibial veins, and greater saphenous vein outflow are patent. Left grea ter saphenous vein measures 4 mm in the upper thigh, 3 mm in the lower thigh, and 2 mm in the calf. N o reflux. Small saphenous vein measures 2 mm in the upper calf and lower calf. No reflux. IMPRESSION: 1. No deep venous thrombosis. 2. No reflux. Reviewed, dictated and finalized at location E.
== END 2022-11-25 09:40 | disposition home or self-care (01) ==
LOC: ANHIMG 09:41
PROVIDERS: PCP Family Medicine; Visit Provider Orthopaedic Surgery
DX: I87.2 Venous insufficiency (chronic) (peripheral) (principal)
CPT/HCPCS: 93970

== ENCOUNTER 2023-01-06 06:40 | Outpatient (CLI) | payer OTHER, MEDICAID, SELFPAY ==
[2023-01-06 09:12] LABS: Hemoglobin A1C 5.6 % (<5.7)
[2023-01-06 09:40] LABS: Free T4 Free Thyroxine 1.09 ng/mL (0.78-2.19)
[2023-01-06 09:54] LABS: Thyroid Stimulating Hormone Reflex 0.169 uIU/mL (0.465-4.68)
== END 2023-01-06 06:41 | disposition home or self-care (01) ==
LOC: ANHLAB 06:42
PROVIDERS: Nurse Practitioner; PCP Family Medicine; Visit Provider Nurse Practitioner Family
DX: R73.01 Impaired fasting glucose (principal); R73.9 Hyperglycemia, unspecified; E03.9 Hypothyroidism, unspecified
CPT/HCPCS: 36415; 83036; 84439; 84443

== ENCOUNTER 2023-01-07 17:52 | Emergency (ER) | payer OTHER, MEDICAID, SELFPAY ==
--- NOTE | ~2023-01-07 | XR_ITS ---
Left Knee Technique: AP, lateral, and oblique views were obtained. Clinical History: Pain Findings: No fracture or dislocation is seen. Osseous alignment is anatomic. Joint spaces are preserv ed without degenerative or erosive change. Soft tissues are unremarkable. No joint effusion is seen. Impression: Unremarkable left knee radiographs. Reviewed, dictated and finalized at [facility]. Impression: Unremarkable left knee radiographs.
[2023-01-07 18:05] VITALS: BP 150/82; PULSE 86; RESP 16; TEMP 37.2; O2SAT 99
--- NOTE | 2023-01-07 18:39 | ED.LOWEXIN ---
HPI - Extremity Injury (Lower) General Chief Complaint: Extremity Injury, Lower Stated Complaint: left knee pain Time Seen by Provider: 01/07/23 18:20 Source: patient and RN notes reviewed Mode of arrival: ambulatory Limitations: no limitations History of Present Illness HPI Narrative: Patient presents today complaining of left knee pain. Yesterday she tripped in the threshold of the door way and fell onto her left knee. Today she tripped off a sidewalk and fell onto her left knee approximately 45 minutes prior to arrival. She has been ambulatory since the fall, with increased pain today. Denies numbness or tingling in the leg or foot. She currently rates her pain 8/10. She applied ice yesterday and took some ibuprofen today with some relief. Related Data Home Medications Medication Instructions Recorded Confirmed cyclobenzaprine 5 mg tablet 5 mg PO DAILY muscle spasm 01/07/23 01/07/23 Allergies Allergy/AdvReac Type Severity Reaction Status Date / Time Penicillins Allergy Intermediate Rash Verified 01/07/23 18:05 Review of Systems Review of Systems: CONSTITUTIONAL: Denies body aches, fever, chills, or sweats. EYES: Denies visual changes, redness, or discharge. ENT: Denies rhinorrhea, congestion, sore throat, or otalgia. CARDIOVASCULAR: Denies chest pain, palpitations, or edema. RESPIRATORY: Denies cough or dyspnea. GASTROINTESTINAL: Denies abdominal pain, nausea, vomiting, or diarrhea. GENITOURINARY: Denies dysuria or hematuria. SKIN: Denies rash, itching, or wounds. MUSCULOSKELETAL: Denies back pain, or myalgia.+ left knee pain NEUROLOGIC: Denies headache, numbness, tingling, or weakness. PSYCH: Denies depression or anxiety. [facility] Past Medical History Medical History Chronic low back pain Dependence on other enabling machines and devices (~2015) Dyslipidemia Essential (primary) hypertension (~2008) Generalized anxiety disorder (~2008) History of thyroid cancer Hypothyroidism, unspecified (~2001) Left foot pain (~08/11/15) Major depress, part remis (~2008) Nicotine dependence, unspecified, uncomplicated (~2009) PETE (obstructive sleep apnea) PETE on CPAP (~01/11/16) sleep study: 01/11/2016: ESS: 10; AHI: 9; 43 snoring events; 60 O2 desaturations: index=8; 63 inches: 196#; BMI 34.7 Peripheral vascular insufficiency Plantar fasciitis of right foot Seizure disorder (~1978) petite mal Surgical History Surgical History History of thyroidectomy, total (~2001) Family History Family History Mother Family history of atrial fibrillation, Onset Age: 72 Father Hypertension Heart valve replaced, Onset Age: 72 Other Depression Heart disease History of thyroid disorder Social History Social History Social History: Caffeine-none Smoking packs per day: 0.25 Smoking cigarettes per day: 5.0 Years smoked: 15 Smoking pack-years: 3.75 Smoking status: Former smoker Tobacco type: cigarettes Second hand tobacco smoke exposure: No Smoking end date: 05/04/22 Alcohol intake: never Substance use: never Substance use type: does not use Lack of Transportation: No Lack of Food: Never True Current Housing: I Have Housing Concerned About Future Housing: No Difficulty Paying Gas/Electric Bills: Decline to Answer Difficulty Paying for Meds: No Currently Unemployed: No Education: High School Diploma/GED Difficulty w/ Childcare or Family Care: No Living arrangements: with family Additional living arrangements comments: daughter, single mom; sexually active; has advance directive (per 10/02/2018 health hx form) Occupation/Education: occupation Gender identity (if verbalized by the patient): Female Spiritual care concerns: No Agree
== END 2023-01-07 18:55 | disposition home or self-care (01) ==
PROVIDERS: Emergency Provider Nurse Practitioner
DX: S80.02XA Contusion of left knee, initial encounter (principal); W01.0XXA Fall on same level from slipping, tripping and stumbling without subsequent striking against object, initial encounter; E78.5 Hyperlipidemia, unspecified; E89.0 Postprocedural hypothyroidism; I73.9 Peripheral vascular disease, unspecified; Z85.850 Personal history of malignant neoplasm of thyroid; F41.1 Generalized anxiety disorder; F32.9 Major depressive disorder, single episode, unspecified
CPT/HCPCS: 73564; 99213; G0463

== ENCOUNTER 2023-02-10 09:55 | Outpatient (CLI) | payer OTHER, MEDICAID, SELFPAY ==
[2023-02-10 11:44] LABS: Thyroid Stimulating Hormone 0.021 uIU/mL (0.465-4.680)
== END 2023-02-10 09:56 | disposition home or self-care (01) ==
PROVIDERS: Visit Provider Nurse Practitioner Family
DX: Z13.29 Encounter for screening for other suspected endocrine disorder (principal); E03.9 Hypothyroidism, unspecified
CPT/HCPCS: 36415; 84439; 84443

== ENCOUNTER 2023-02-17 06:48 | Outpatient (CLI) | payer OTHER, MEDICAID, SELFPAY ==
[2023-02-17 07:52] LABS: Free T4 Free Thyroxine 1.08 ng/mL (0.78-2.19)
== END 2023-02-17 06:49 | disposition home or self-care (01) ==
PROVIDERS: PCP Family Medicine; Visit Provider Internal Medicine
DX: E03.9 Hypothyroidism, unspecified (principal); C73 Malignant neoplasm of thyroid gland
CPT/HCPCS: 36415; 84439; 86800

== ENCOUNTER 2023-02-20 06:59 | Outpatient (NON) | payer OTHER, MEDICAID, SELFPAY | END 2023-02-20 07:00 | disposition home or self-care (01) | PROVIDERS: PCP Family Medicine; Visit Provider Internal Medicine | DX: R63.5 Abnormal weight gain (principal) | CPT/HCPCS: 82530 ==

== ENCOUNTER 2023-04-07 10:12 | Outpatient (CLI) | payer OTHER, MEDICAID, SELFPAY ==
[2023-04-07 11:48] LABS: Thyroid Stimulating Hormone 0.028 uIU/mL (0.465-4.680)
[2023-04-11 03:55] LABS: Thyroglobulin <0.1 ng/mL (2.8-40.9); Thyroglobulin Antibodies <1 IU/mL (<=1)
== END 2023-04-07 10:13 | disposition home or self-care (01) ==
LOC: ANHLAB 10:16
PROVIDERS: PCP Family Medicine; Visit Provider Internal Medicine
DX: C73 Malignant neoplasm of thyroid gland (principal); E03.9 Hypothyroidism, unspecified
CPT/HCPCS: 36415; 84432; 84443; 86800

== ENCOUNTER 2023-07-26 06:59 | Outpatient (CLI) | payer OTHER, MEDICAID, SELFPAY ==
[2023-07-26 07:43] LABS: Basophils Percent Auto 0.5 % (0.2-1.2); Eosinophils Absolute Auto 0.2 K/mm3 (0-0.3); Eosinophils Percent Auto 3.4 % (0-4.4); Hematocrit 41.6 % (37.0-47.0); Hemoglobin 13.6 g/dL (12.0-15.0); Immature Granulocyte Absolute 0.02 K/mm3 (0.00-0.031); Immature Granulocyte Percent A 0.3 % (0-0.5); Lymphocytes Percent Auto 39.6 % (18.3-44.2); Mean Corpuscular HGB Conc 32.7 g/dl (32-36); Mean Corpuscular Hemoglobin 28.8 pg (26-34); Mean Corpuscular Volume 87.9 fl (80-100); Mean Platelet Volume 10.1 fl (7.4-10.4); Monocytes Absolute Auto 0.3 K/mm3 (0.1-0.6); Monocytes Percent Auto 5.9 % (2.6-8.5); Neutrophils Absolute Auto 2.9 K/mm3 (1.3-6.7); Neutrophils Percent Auto 50.3 % (45.5-73.1); Platelet Count Result 242 k/mm3 (150-375); Red Blood Count 4.73 M/mm3 (4.2-5.4); Red Cell Distribution Width 13.9 % (11.5-14.5); White Blood Count 5.8 K/mm3 (4.5-10.0)
[2023-07-26 07:48] LABS: Alanine Aminotransferase 20 U/L (6-35); Albumin Level 4.1 g/dL (3.5-5.1); Alkaline Phosphatase 132 U/L (38-126); Anion Gap 6 mmol/L (8-16); Aspartate Amino Transferase 23 U/L (14-36); Bilirubin,Total 0.4 mg/dL (0.2-1.3); Blood Urea Nitrogen 14 mg/dL (7-17); Calcium 9.3 mg/dL (8.4-10.2); Carbon Dioxide 28 mmol/L (22-30); Chloride 104 mmol/L (98-107); Cholesterol 220 mg/dL (0-200); Estimated Glomerular Filt Rate > 60; Glucose 97 mg/dL (65-110); HDL Direct 78 mg/dL; Sodium 138 mmol/L (137-145); Triglycerides 139 mg/dL (<150)
[2023-07-26 08:00] LABS: LDL Cholesterol Direct 101 mg/dL
[2023-07-26 08:17] LABS: Thyroid Stimulating Hormone 0.054 uIU/mL (0.465-4.680)
[2023-07-26 08:39] LABS: Hemoglobin A1C 5.9 % (<5.7)
== END 2023-07-26 07:00 | disposition home or self-care (01) ==
PROVIDERS: PCP Family Medicine; Visit Provider Nurse Practitioner Family
DX: Z00.00 Encounter for general adult medical examination without abnormal findings (principal); R73.03 Prediabetes; Z13.220 Encounter for screening for lipoid disorders; Z13.29 Encounter for screening for other suspected endocrine disorder
CPT/HCPCS: 36415; 80053; 80061; 83036; 84443; 85025

== ENCOUNTER 2023-09-04 15:44 | Outpatient (CLI) | payer OTHER, MEDICAID, SELFPAY ==
--- NOTE | ~2023-09-04 | US_ITS ---
EXAMINATION: US soft tissue head and neck DATE: 09/04/2023 16:02 INDICATION: Thyroid cancer. TECHNIQUE: Multiple ultrasound images of the thyroid were obtained. COMPARISON: Neck CT 03/01/2004 FINDINGS: The thyroid is absent. There is no abnormal tissue in the thyroidectomy bed. There is no lymphadenopa thy. IMPRESSION: 1. Thyroidectomy. Reviewed, dictated and finalized at location E. [facility] IMPRESSION: 1. Thyroidectomy.
== END 2023-09-04 15:45 ==
PROVIDERS: PCP Nurse Practitioner Family; Visit Provider Internal Medicine
DX: C73 Malignant neoplasm of thyroid gland (principal); Z85.850 Personal history of malignant neoplasm of thyroid; Z90.89 Acquired absence of other organs
CPT/HCPCS: 76536

== ENCOUNTER 2023-09-29 15:10 | Outpatient (CLI) | payer OTHER, MEDICAID, SELFPAY ==
--- NOTE | ~2023-09-29 | MM_ITS ---
EXAMINATION: MM screening cameron BI w carlene HISTORY: Screening mammogram TECHNIQUE: Craniocaudal and mediolateral oblique 3-D tomosynthesis images were obtained and synthetic 2-D images were generated. CAD analysis was submitted and interpreted. COMPARISON: 05/27/2022, 03/23/2021 bilateral screening mammogram examinations BREAST PARENCHYMAL COMPOSITION: The breasts are heterogeneously dense, which may obscure small masses . FINDINGS: There is no evidence of suspicious mass, calcification, or architectural distortion to sugg est malignancy in either breast. There has been no suspicious interval change. IMPRESSION: 1. No mammographic evidence of malignancy. 2. Recommend routine screening mammography in one year. BI-RADS Category 1: Negative Reviewed, dictated and finalized at location A.
== END 2023-09-29 15:11 | disposition home or self-care (01) ==
LOC: ANHIMG 15:13
PROVIDERS: PCP Family Medicine; Visit Provider Nurse Practitioner
DX: Z12.31 Encounter for screening mammogram for malignant neoplasm of breast (principal)
CPT/HCPCS: 77063; 77067

== ENCOUNTER 2023-12-07 18:35 | Emergency (ER) | payer OTHER, SELFPAY ==
--- NOTE | 2023-12-07 18:42 | ED.DIZZY ---
HPI - Dizziness General Chief Complaint: Dizziness Stated Complaint: High B/P, brain fog Time Seen by Provider: 12/07/23 18:50 Source: patient and family Mode of arrival: ambulatory Limitations: no limitations History of Present Illness HPI Narrative: Magnolia is a 53-year-old female patient presenting to the clinic today with complaints of high blood pressure and brain fog. States symptoms started this morning when she woke up. She has been under lot of stress. Had taking a clonazepam this morning and this helped alleviate her symptoms however over the last couple hours she developed a recurrence of symptoms and has taken another clonazepam at 4:30 this afternoon and this did not seem to help yet. Is concerned that her blood pressure is too high. States she took it this morning and it was in the 170 over 100 systolic. She is taking triamterene with hydrochlorothiazide but denies any history of high blood pressure. States she takes this medication for the diuretic as her right ankle swells. Denies any URI symptoms, headache, dizziness, visual changes, chest pain, or shortness of breath. Listed medical history includes depression, seizure disorder, anxiety, hypothyroidism-status post thyroidectomy due to thyroid carcinoma, prediabetes, hypertension, hyperlipidemia, obesity, and sleep apnea. Last set labs were done in July. Related Data Home Medications Medication Instructions Recorded Confirmed omega-3 fatty acids 1,000 mg 1,000 mg PO DAILY 11/15/23 12/07/23 capsule atorvastatin 10 mg tablet 10 mg PO DAILY 12/07/23 12/07/23 meloxicam 15 mg tablet 15 mg PO DAILY 12/07/23 12/07/23 oxybutynin chloride 5 mg 5 mg PO DAILY 12/07/23 12/07/23 tablet,extended release 24 hr trazodone 50 mg tablet 50 mg PO DAILY 12/07/23 12/07/23 Allergies Allergy/AdvReac Type Severity Reaction Status Date / Time Penicillins Allergy Intermediate Rash Verified 12/07/23 18:43 Review of Systems Review of Systems: Pertinent positives per HPI. Patient denies any fever, chills, rash, headache, visual changes, dizziness, cough, runny nose, sore throat, shortness of breath, chest pain, palpitations, nausea, vomiting, diarrhea, constipation, abdominal pain, or any urinary issues. [facility] Past Medical History Medical History Anxiety At risk for lymphedema Chronic low back pain Degenerative joint disease of knee Dependence on other enabling machines and devices (~2015) Dyslipidemia Encounter for weight management Essential (primary) hypertension (~2008) Generalized anxiety disorder (~2008) History of thyroid cancer Hyperlipidemia Hypothyroidism, unspecified (~2001) Insomnia Left foot pain (~08/11/15) Left knee pain Major depress, part remis (~2008) Nicotine dependence, unspecified, uncomplicated (~2009) Obesity Obesity (~06/02/23) PETE (obstructive sleep apnea) PETE on CPAP (~01/11/16) sleep study: 01/11/2016: ESS: 10; AHI: 9; 43 snoring events; 60 O2 desaturations: index=8; 63 inches: 196#; BMI 34.7 Papillary thyroid carcinoma Peripheral vascular insufficiency Plantar fasciitis of right foot Right knee pain Right sided sciatica Seizure disorder (~1978) petite mal Thyroid cancer Thyroid cancer Surgical History Surgical History History of thyroidectomy, total (~2001) Family History Family History Mother Family history of atrial fibrillation, Onset Age: 72 Father Hypertension Heart valve replaced, Onset Age: 72 Heart disease Grandparent Acute myocardial infarction Breast cancer Other History of thyroid disorder aunt Social History Social History Social History: Caffeine-none Smoking packs per day: 0.5 Smoking cigarettes per day: 10.0 Years smoked: 34 Smoking pack-years: 17.00
[2023-12-07 18:48] VITALS: BP 152/86; PULSE 80; RESP 16; TEMP 36.8; O2SAT 100
[2023-12-07 19:26] LABS: Glucose Point of Care 102 mg/dl (65-105)
[2023-12-07 19:35] VITALS: BP 150/102
== END 2023-12-07 19:35 | disposition home or self-care (01) ==
PROVIDERS: Emergency Provider Nurse Practitioner Family
DX: F41.9 Anxiety disorder, unspecified (principal); R41.9 Unspecified symptoms and signs involving cognitive functions and awareness; I10 Essential (primary) hypertension; Z87.891 Personal history of nicotine dependence; E89.0 Postprocedural hypothyroidism; E78.5 Hyperlipidemia, unspecified; E66.9 Obesity, unspecified; Z68.39 Body mass index [BMI] 39.0-39.9, adult; G47.33 Obstructive sleep apnea (adult) (pediatric); Z85.850 Personal history of malignant neoplasm of thyroid; F32.A Depression, unspecified; R73.03 Prediabetes
CPT/HCPCS: 82948; 99213; G0463

== ENCOUNTER 2023-12-28 06:49 | Outpatient (CLI) | payer OTHER, SELFPAY ==
[2023-12-28 08:20] LABS: Free T4 Free Thyroxine 1.51 ng/mL (0.78-2.19)
[2023-12-28 08:22] LABS: Thyroid Stimulating Hormone < 0.015 uIU/mL (0.465-4.680)
== END 2023-12-28 06:50 | disposition home or self-care (01) ==
PROVIDERS: PCP Family Medicine; Visit Provider Internal Medicine
DX: E03.9 Hypothyroidism, unspecified (principal); C73 Malignant neoplasm of thyroid gland
CPT/HCPCS: 36415; 84439; 84443; 86800

== ENCOUNTER 2024-03-06 06:57 | Outpatient (CLI) | payer OTHER, SELFPAY ==
[2024-03-06 07:46] LABS: Cholesterol 219 mg/dL (0-200); HDL Direct 72 mg/dL; Triglycerides 164 mg/dL (<150)
[2024-03-06 07:57] LABS: LDL Cholesterol Direct 107 mg/dL
== END 2024-03-06 06:58 | disposition home or self-care (01) ==
LOC: ANHLAB 07:00
PROVIDERS: PCP Family Medicine; Visit Provider Nurse Practitioner Family
DX: E78.5 Hyperlipidemia, unspecified (principal)
CPT/HCPCS: 36415; 80061

== ENCOUNTER 2024-08-04 08:10 | Emergency (ER) | payer OTHER, SELFPAY ==
--- NOTE | 2024-08-04 08:13 | ED_ITS ---
HPI - URI/Sore Throat General Chief Complaint: Upper Respiratory Infection Stated Complaint: Sinus Time Seen by Provider: 08/04/24 08:12 Source: patient Mode of arrival: ambulatory Limitations: no limitations History of Present Illness HPI Narrative: Ruthie is a 54-year-old female patient presenting to the clinic today with complaints of sinus pressure, cough, nasal congestion, headache, shortness of breath on exertion, general malaise and fatigue x6 days. She reports her primary care provider prescribed her cefdinir on the and she has started this medication. States she has had exposure to pneumonia and bronchitis. States every time she takes a deep breath she coughs. Cough is nonproductive. She denies any fevers or chills. Has taken at home COVID test and it was negative. Related Data Allergies Allergy/AdvReac Type Severity Reaction Status Date / Time Penicillins Allergy Intermediate Rash Verified 08/04/24 08:16 Review of Systems Review of Systems: Pertinent positives per HPI. Patient denies any fever, chills, rash, visual changes, dizziness, sore throat, shortness of breath, chest pain, palpitations, nausea, vomiting, diarrhea, constipation, abdominal pain, or any urinary issues. [facility] Past Medical History Medical History At risk for lymphedema Degenerative joint disease of knee Left knee pain Encounter for weight management Anxiety Obesity (~06/02/23) Papillary thyroid carcinoma Thyroid cancer Thyroid cancer Hyperlipidemia Insomnia Plantar fasciitis of right foot Peripheral vascular insufficiency Obesity Right sided sciatica Right knee pain PETE (obstructive sleep apnea) History of thyroid cancer Dyslipidemia Chronic low back pain Dependence on other enabling machines and devices (~2015) Essential (primary) hypertension (~2008) Generalized anxiety disorder (~2008) Hypothyroidism, unspecified (~2001) Left foot pain (~08/11/15) Major depress, part remis (~2008) Nicotine dependence, unspecified, uncomplicated (~2009) PETE on CPAP (~01/11/16) sleep study: 01/11/2016: ESS: 10; AHI: 9; 43 snoring events; 60 O2 desaturations: index=8; 63 inches: 196#; BMI 34.7 Seizure disorder (~1978) petite mal Surgical History Surgical History History of thyroidectomy, total (~2001) Family History Family History Mother Family history of atrial fibrillation, Onset Age: 72 Father Hypertension Heart valve replaced, Onset Age: 72 Heart disease Grandparent Acute myocardial infarction Breast cancer Other History of thyroid disorder aunt Social History Social History Social History: Caffeine-none Smoking packs per day: 0.5 Smoking cigarettes per day: 10.0 Years smoked: 34 Smoking pack-years: 17.00 Smoking status: Former smoker Tobacco type: cigarettes Second hand tobacco smoke exposure: No Smoking end date: 05/04/22 Additional smoking assessment comments: off and on Alcohol intake: never Substance use: never Substance use type: does not use Lack of Transportation: No Lack of Food: Never True Current Housing: I Have Housing Concerned About Future Housing: No Difficulty Paying Gas/Electric Bills: No Difficulty Paying for Meds: No Currently Unemployed: No Education: High School Diploma/GED Difficulty w/ Childcare or Family Care: No Living arrangements: with family Additional living arrangements comments: daughter, single mom; sexually active; has advance directive (per 10/02/2018 health hx form) Occupation/Education: occupation Gender identity (if verbalized by the patient): Female Spiritual care concerns: No Agree to blood products: Yes Comments At the time of my signature, I reviewed and agree with the nursing past medical, surgical, social, and family history. There is no relevant family history pertinent to the patient complaint. Exam Narrative: General: Well-developed, obese, in no apparent distress Head: Normocephalic, atraumatic Eyes: Pupils equally round and reactive to light bilaterally, EOM intact, sclera and conjunctive clear, no discharge, lids normal Ears: TMs intact and clear, ear canals clear, no drainage, grossly hearing normal. Nose: Nares patent, clear nasal discharge, no inflammation, no sinus tenderness. Mouth: Oropharynx without lesions or masses, good dentition, MMM. Postnasal drip Neck: Supple, trachea midline, no enlargement of anterior or posterior cervical nodes, no thyroid masses or goiter palpable. Cardio: Regular rate and rhythm, s1 and s2 normal, no murmur appreciated. Resp: Clear to auscultation bilaterally anteriorly and posteriorly, no rhonchi, rales, wheezing or rubs Course Course Emergency Course: Portions of this record may have been created with voice recognition software. Level of Care: Express Care Visit Vital Signs Vital signs: Vital Signs Temperature 36.6 C 08/04/24 08:19 Pulse Rate 81 08/04/24 08:19 Respiratory Rate 18 08/04/24 08:19 Blood Pressure 153/91 H 08/04/24 08:19 Pulse Oximetry 94 08/04/24 08:19 Oxygen Delivery Room Air 08/04/24 08:19 Temperature 36.6 C 08/04/24 08:19 Pulse Rate 81 08/04/24 08:19 Respiratory Rate 18 08/04/24 08:19 Blood Pressure 153/91 H 08/04/24 08:19 Pulse Oximetry 94 08/04/24 08:19 Oxygen Delivery Room Air 08/04/24 08:19 Vital signs reviewed MDM - URI/Sore Throat MDM Narrative Medical decision making narrative: At the time of visit patient is resting comfortably on the exam table. Patient appears to be nontoxic. Plan: I suspect patient has URI with cough and congestion. Prescription for prednisone, albuterol inhaler, and Tessalon Perles was sent to the pharmacy. Will have the patient continue taking the cefdinir perez she has already started this. Supportive measures were discussed with the patient and they voiced understanding discharge instructions and agrees to treatment plan. Return precautions reviewed Differential Diagnosis Differential diagnosis: Likely upper respiratory infection, otitis media, sinusitis, viral infection, bronchitis, influenza, pharyngitis and other (COVID) Discharge Plan Discharge Clinical Impression: Upper respiratory infection with cough and congestion Patient Disposition: Home, Self-Care Condition: Stable Instructions: Antibiotic Form, Upper Respiratory Infection (ED) Additional Instructions: Take prescription medications only as prescribed-albuterol inhaler, prednisone, and Tessalon Perles May take Mucinex during the daytime and Tessalon Perles at night for your cough to help you sleep Cool-mist humidifier at the bedside Increase fluids and stay well hydrated Tylenol/motrin for pain/fever Flonase and OTC antihistamines as directed Vicks vapor rub to open sinuses Sinus rinses for congestion Cepacol spray, cough drops, throat lozenges, warm tea with honey/lemon, gargle salt water to soothe throat BRAT diet for diarrhea Clear liquids x 24 hours then advance as tolerated for nausea/vomiting Go to the ED if you develop a worsening in your condition- high fever not controlled by Tylenol or Motrin, dehydration, weakness, lethargy, shortness of breath, or chest pain. Follow up with your PCP in 3-5 days if symptoms persist. Patient Language: Chadian Prescriptions: New prednisone 20 mg tablet 40 mg PO DAILY 5 Days Qty: 10 0RF benzonatate 200 mg capsule 200 mg PO TID 7 Days Qty: 21 0RF albuterol sulfate 90 mcg/actuation HFA aerosol inhaler 2 puff inhalation Q4-6H PRN (Reason: shortness of breath or wheezing) 30 Days Qty: 8.5 0RF No Action rosuvastatin 5 mg tablet 5 mg PO DAILY Qty: 90 3RF carbamazepine 200 mg capsule, ER multiphase 12 hr 400 mg PO Q12H Qty: 360 1RF triamterene-hydrochlorothiazid 37.5-25 mg tablet 1 tablet PO DAILY Qty: 90 1RF buspirone 10 mg tablet 10 mg PO TID PRN (Reason: panic attack(s)) 90 Days Qty: 270 1RF levothyroxine 175 mcg tablet See Rx Instructions .ROUTE .COMPLEX Qty: 30 3RF Dose Instruction: TAKE 1 TABLET BY MOUTH EVERY DAY Rx Instructions: TAKE 1 TABLET BY MOUTH EVERY DAY clonazepam 2 mg tablet 1 mg PO BID PRN (Reason: anxiety) Qty: 30 1RF sertraline 100 mg tablet See Rx Instructions .ROUTE .COMPLEX Qty: 180 1RF Dose Instruction: TAKE 1 TABLET BY MOUTH TWICE A DAY Rx Instructions: TAKE 1 TABLET BY MOUTH TWICE A DAY cefdinir 300 mg capsule 300 mg PO Q12H Qty: 14 0RF Follow-up/Referrals: Kwesi Calvin MD [Primary Care Provider] - Stand Alone Forms: Work/School Release IP Time of Disposition: 08:28 Quality NIHSS Nursing Documentation ED NIHSS nursing documentation: reviewed/agree
[2024-08-04 08:19] VITALS: BP 153/91; PULSE 81; RESP 18; TEMP 36.6; O2SAT 94
== END 2024-08-04 08:35 | disposition home or self-care (01) ==
PROVIDERS: Emergency Provider Nurse Practitioner Family; PCP Family Medicine
DX: J06.9 Acute upper respiratory infection, unspecified (principal); R05.9 Cough, unspecified; Z87.891 Personal history of nicotine dependence; E78.5 Hyperlipidemia, unspecified; I10 Essential (primary) hypertension; E89.0 Postprocedural hypothyroidism; G47.33 Obstructive sleep apnea (adult) (pediatric); E66.9 Obesity, unspecified; Z68.39 Body mass index [BMI] 39.0-39.9, adult; Z85.850 Personal history of malignant neoplasm of thyroid
CPT/HCPCS: 99213; G0463

== ENCOUNTER 2024-08-14 06:51 | Outpatient (CLI) | payer OTHER, SELFPAY ==
[2024-08-14 07:45] LABS: Free T4 Free Thyroxine 0.92 ng/dL (0.78-2.19)
[2024-08-19 13:28] LABS: Thyroglobulin <0.1 ng/mL; Thyroglobulin Antibodies 1 IU/mL (< or = 1)
== END 2024-08-14 06:52 | disposition home or self-care (01) ==
LOC: ANHLAB 06:52
PROVIDERS: PCP Family Medicine; Visit Provider Internal Medicine
DX: C73 Malignant neoplasm of thyroid gland (principal); E03.9 Hypothyroidism, unspecified
CPT/HCPCS: 36415; 84432; 84439; 84443; 86800

== ENCOUNTER → 2024-10-08 15:43 | Outpatient (REF) | payer OTHER, SELFPAY ==
--- OUTSIDE RECORDS SUMMARY | 2024-10-08 18:13 | XMS_ITS | Encounter Summary ---
Author Organization [facility] Address [address] [place] [address] Care Team Providers Care Planer Off Bearer Name Role Phone Kushal Son MD Primary Care Provider [phone] Encounter Details Date Type Department Care Team (Latest Contact Info) Description 01/03/2004 Outpatient Historical HIS [facility] JESSICA Son, MD Kushal [address] [place] [address] ENDOCRINE/NERV EVAN NOS (Primary Dx) Social History Tobacco Use Types Packs/Day Years Used Date Smoking Tobacco: Never Assessed Comments Unknown Sex and Gender Information Value Date Recorded Sex Assigned at Not on file 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
--- OUTSIDE RECORDS SUMMARY | 2024-10-08 18:13 | XMS_ITS | Encounter Summary ---
Author Organization [facility] Address [address] [place] [address] Care Team Providers Care Strategic Insights Lead Name Role Phone Kushal Son MD Primary Care Provider [phone] Encounter Details Date Type Department Care Team (Late st Contact Info) Description 09/05/1998 Outpatient Historical [facility] Cynthia Monroe MD [address] [place] [id number] Dizziness and giddiness (Primary Dx) Social History Tobacco Use Types Packs/Day Years Used Date Smoking Tobacco: Never Assessed Comments Unknown Sex and Gender Information Value Date Recorded Sex Assigned at Not on file Legal Sex Female 5:19 AM 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
--- OUTSIDE RECORDS SUMMARY | 2024-10-08 18:13 | XMS_ITS | Encounter Summary ---
Author Organization [facility] Address [address] [facility] Attn: [place] [address] Care Team Providers Care Veneer Splicer Name Role Phone Kushal Son MD Primary Care Provider [phone] Encounter Details Date Type Department Care Team (Late st Contact Info) Description 06/14/1996 Outpatient Historical Conversion, History AdelaidaKushal ordonez MD [address] [place], [place] [id number] Social History Tobacco Use Types Packs/Day Years Used Date Smoking Tobacco: Never Assessed Comments Unknown Sex and Gender Information Value Date Recorded Sex Assigned at Not on file Legal Sex Female 5:19 AM 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
--- OUTSIDE RECORDS SUMMARY | 2024-10-08 18:13 | XMS_ITS | Encounter Summary ---
Author Organization [facility] Address 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
--- OUTSIDE RECORDS SUMMARY | 2024-10-08 18:13 | XMS_ITS | Encounter Summary ---
Author Organization [facility] Address [address] [facility] Attn: [place] [address] Care Team Providers Care Vp Product Name Role Phone Kushal Son MD Primary Care Provider [phone] Encounter Details Date Type Department Care Team (Late st Contact Info) Description 09/30/1989 Outpatient Historical AdelaidaKushal MD [address] [place] [id number] Social History Tobacco Use Types Packs/Day Years Used Date Smoking Tobacco: Never Assessed Comments Unknown Sex and Gender Information Value Date Recorded Sex Assigned at Not on file Legal Sex Female 5:19 AM MIGRATION AGENT Gender Identity Not on file Sexual Orientation Not on file documented as of this encounter Plan of Treatment Not on file documented as of this encounter Visit Diagnoses Not on filedocumented in this encounter Care Teams Vp Product Relationship Specialty Start Date End Date Kushal Son MD [address] [place] [id number] PCP - General 09/05/01 documented as of this encounter
--- OUTSIDE RECORDS SUMMARY | 2024-10-08 18:13 | XMS_ITS | Encounter Summary ---
Author Organization [facility] Address [address] [place] [address] Care Team Providers Care Art Tracer Name Role Phone Kushal Son MD Primary Care Provider [phone] Encounter Details Date Type Department Care Team (Late st Contact Info) Description 11/29/2000 Outpatient Historical Division of Neurology [address] [address] Cynthia Monroe MD [address] [place] [address] Social History Tobacco Use Types Packs/Day Years Used Date Smoking Tobacco: Never Assessed Comments Unknown Sex and Gender Information Value Date Recorded Sex Assigned at Not on file Legal Sex Female 5:19 AM TALENT ASSOCIATE Gender Identity Not on file Sexual Orientation Not on file documented as of this encounter Plan of Treatment Not on file documented as of this encounter Visit Diagnoses Not on filedocumented in this encounter Care Teams Art Tracer Relationship Specialty Start Date End Date Kushal Son MD [address] [place] [address] PCP - General 09/05/01 documented as of this encounter
--- OUTSIDE RECORDS SUMMARY | 2024-10-08 18:13 | XMS_ITS | Encounter Summary ---
Author Organization [facility] Address [address] [place] [address] Care Team Providers Care Human Resource Assistant Name Role Phone Kushal Son MD Primary Care Provider [phone] Encounter Details Date Type Department Care Team (Latest Contact Info) Description 12/14/2002 Outpatient Historical HIS [facility] JESSICA Son, MD Kushal [address] [place], [place] [phone] ROUTINE MEDICAL EXAM (Primary Dx) Social History Tobacco Use Types Packs/Day Years Used Date Smoking Tobacco: Never Assessed Comments Unknown Sex and Gender Information Value Date Recorded Sex Assigned at Not on file Legal Sex Female 5:19 AM AIR QUALITY SPECIALIST Gender Identity Not on file Sexual Orientation Not on file documented as of this encounter Plan of Treatment Not on file documented as of this encounter Visit Diagnoses Diagnosis Routine general medical examination at a health care facility- Primary documented in this encounter Care Teams Human Resource Assistant Relationship Specialty Start Date End Date Kushal Son MD [address] [place], [place] [phone] PCP - General 09/05/01 documented as of this encounter
--- OUTSIDE RECORDS SUMMARY | 2024-10-08 18:13 | XMS_ITS | Encounter Summary ---
Author Organization [facility] Address [address] [place] [address] Care Team Providers Care Burglar Alarm Mechanic Name Role Phone Kusahl Son MD Primary Care Provider [phone] Encounter Details Date Type Department Care Team (Latest Contact Info) Description 01/29/2005 Outpatient Historical HIS [facility] Kushal Larose MD [address] [place] [phone] [facility] ENDOCR[facility] NEC (Primary Dx) Social History Tobacco Use Types Packs/Day Years Used Date Smoking Tobacco: Never Assessed Comments Unknown Sex and Gender Information Value Date Recorded Sex Assigned at Not on file Legal Sex Female 5:19 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 M113 Gender Identity Not on file Sexual Orientation Not on file documented as of this encounter Plan of Treatment Not on file documented as of this encounter Procedures Procedure Name Priority Date/Time Associated Diagnosis Comments URINALYSIS W/REFLEX MICROSCOPIC Routine 01/29/2005 10:33 AM CDT CBC WITH DIFFERENTIAL Routine 01/29/2005 10:29 AM CDT CBC WITH DIFFERENTIAL Routine 01/29/2005 10:29 AM CDT TSH Routine 01/29/2005 10:29 AM CDT T4 FREE Routine 01/29/2005 10:29 AM CDT LIPID PANEL Routine 01/29/2005 10:29 AM CDT COMPREHENSIVE METABOLIC PANEL Routine 01/29/2005 10:29 AM CDT documented in this encounter Results * (ABNORMAL) URINALYSIS (01/29/2005 10:33 AM CDT) COLOR UA Yellow INTERFACE SYSTEM CLARITY UA Clear Clear INTERFACE SYSTEM SPECIFIC GRAVITY UA 1.015 1.001 - 1.035 INTERFACE SYSTEM PH UA 6.5 5.0 - 8.0 INTERFACE SYSTEM LEUKOCYTE ESTERASE UA 2+(A) Negative INTERFACE SYSTEM NITRITE UA Negative Negative INTERFACE SYSTEM PROTEIN UA Negative Negative INTERFACE SYSTEM GLUCOSE UA Negative Negative INTERFACE SYSTEM KETONES UA Negative Negative INTERFACE SYSTEM UROBILINOGEN UA <1 <1 mg/dL INTE RFACE SYSTEM Comment: Effective 12/29/04, Urobilinogen will be reported in mg/dL resulting in a n increased sensitivity at lower urobilinogen levels. Previously, results were reported in Joo unit(EU)/dL. 1+ results previously reported as 1 EU/dL (normal) will become 2 mg/dL (abnormal). BILIRUBIN UA Negative Negative INTERFA CE SYSTEM BLOOD UA Negative Negative INTERFACE SYSTEM WBC UA 11(H) 0 - 5 /HPF INTERFACE SYSTEM RBC UA <1 0 - 4 /HPF INTERFACE SYSTEM BACTERIA UA 1+(A) None Seen /HPF INTERFACE SYSTEM EPITHELIAL CELLS, URINE 5-10 /HPF INTERFACE SYSTEM 01/29/2005 10:3 3 AM CDT Kushal Son MD URINE ORDERABLES Final Result INTERFACE SYSTEM Refer to clinic/hospital department * CBC WITH DIFFERENTIAL (01/29/2005 10:29 AM CDT) NEUTROPHILS 58 45 - 70 % INTERFAC E SYSTEM LYMPHOCYTES 36 16 - 45 % INTERFAC E SYSTEM MONOCYTES 6 3 - 13 % INTERFACE SYSTEM EOSINOPHILS 1 0 - 7 % INTERFAC E SYSTEM BASOPHILS 1 0 - 2 % INTERFACE SYSTEM NEUTROPHIL ABSOLUTE 3.45 1.90 - 7.00 K/uL INTERFACE SYSTEM LYMPHOCYTE ABSOLUTE 2.12 0.70 - 4.50 K/uL INTERFACE SYSTEM MONOCYTE ABSOLUTE 0.35 0.10 - 1.30 K/uL INTERFACE SYSTEM EOSINOPHIL ABSOLUTE 0.03 0.00 - 0.70 K/uL INTERFACE SYSTEM BASOPHILS ABSOLUTE 0.03 0.00 - 0.20 K/uL INTERFACE SYSTEM 01/29/2005 10:2 9 AM CDT Kushal Son MD HEMATOLOGY ORDERABLES Final Resu lt Performing Organization Address [facility] Phone Number INTERFACE SYSTEM Refer to clinic/hospital department * CBC WITH DIFFERENTIAL (01/29/2005 10:29 AM CDT) WBC 6.0 4.0 - 9.8 K/uL INTERFACE SYSTEM RBC 4.56 3.90 - 4.90 M/uL INTERFACE SYSTEM HEMOGLOBIN 13.9 11.8 - 14.8 g/dL INTERFACE SYSTEM HEMATOCRIT 42.6 35.5 - 44.0 % INTERFACE SYSTEM MCV 93.4 82.0 - 99.0 fL INTERFACE SYSTEM MCH 30.5 27.2 - 32.6 pg INTERFACE SYSTEM MCHC 32.6 31.5 - 35.5 % INTERFACE SYSTEM RDW 12.7 11.5 - 14.5 % INTERFACE SYSTEM RDW-STDEV 43.3 37.1 - 48.7 fL INTERFACE SYSTEM PLATELETS 288 140 - 350 K/uL INTERFACE SYSTEM MPV 10.2 9.3 - 12.4 fL INTERFACE SYSTEM 01/29/2005 10:2 9 AM CDT Kushal Son MD HEMATOLOGY ORDERABLES Final Resu lt Performing Organization Address [facility] Phone Number INTERFACE SYSTEM Refer to clinic/hospital department * TSH (01/29/2005 10:29 AM CDT) TSH 1.03 0.27 - 4.20 uU/mL INTERFACE SYSTEM 01/29/2005 10:2 9 AM CDT Kushal Son MD CHEMISTRY ORDERABLES Final Resul t Performing Organization Address [facility] Phone Number INTERFACE SYSTEM Refer to clinic/hospital department * T4 FREE (01/29/2005 10:29 AM CDT) T4 FREE 1.4 0.9 - 1.7 ng/dL INTERFACE SYSTEM 01/29/2005 10:2 9 AM CDT Kushal Son MD CHEMISTRY ORDERABLES Final Resul t Performing Organization Address [facility]/ZIP Co de Phone Number INTERFACE SYSTEM Refer to clinic/hospital department * (ABNORMAL) LIPID PANEL (01/29/2005 10:29 AM CDT) CHOLESTEROL 237(H) 100 - 199 mg/dL INTERFACE SYSTEM TRIGLYCERIDE 82 10 - 149 mg/dL INTERFACE SYSTEM HDL 95(H) 40 - 59 mg/dL INTERFACE SYSTEM LDL CALCULATED 126(H) <=99 mg/dL INTERFACE SYSTEM CHOL/HDL RATIO 2.5 2.0 - 5.0 INTER FACE SYSTEM Comment:See interpretive sheryl a section for risk classifications. LIPID PANEL COMMENT See below INTERFACE SYSTEM Comment: Adult ATP III Classifications: Cholesterol (mg/dL) Triglyceride (mg/dL) Desirable <200 Normal <150 Borderline 200 - 239 Borderline High 150 - 199 High >=240 High 200 - 499 Very High >=500 HDL Cholesterol (mg/dL) LDL (mg/dL) Low (increased risk) <40 Optimal <100 High (reduced risk) >=60 Near or above optimal 100 - 129 Borderline 130 - 159 High 160 - 189 Very High >=190 LDL calculation is not accurate if Triglycerides are greater than 400 mg /dL Pediatric NCEP Classifications: Cholesterol(<20 years),(mg/dL) Triglyceride Desirable <170 Pediatric classification Borderline 170 - 199 not defined. High >=200 HDL (<5 years) LDL (mg/dL) No Reference Range Established Desirable <110 Borderline 110 - 129 High >=130 01/29/2005 10:2 9 AM CDT Kushal Son MD CHEMISTRY ORDERABLES Final Resul t Performing Organization Address [facility] Co de Phone Number INTERFACE SYSTEM Refer to clinic/hospital department * COMPREHENSIVE METABOLIC PANEL (01/29/2005 10:29 AM CDT) GLUCOSE 81 65 - 109 mg/dL INTERFACE SYSTEM CREATININE 0.7 0.4 - 1.2 mg/dL INTERFACE SYSTEM CALCIUM 9.4 8.6 - 10.2 mg/dL INTERFACE SYSTEM AST 19 12 - 32 U/L INTERFACE SYSTEM ALKALINE PHOSPHATASE 71 35 - 104 U/L INTERFACE SYSTEM BUN 12 6 - 20 mg/dL INTERFACE SYSTEM BILIRUBIN TOTAL 0.4 0.2 - 1.0 mg/dL INTERFACE SYSTEM ALBUMIN 4.7 3.4 - 4.8 g/dL INTERFACE SYSTEM TOTAL PROTEIN 8.3 6.3 - 8.6 g/dL INTERFACE SYSTEM ALT 20 0 - 31 U/L INTERFACE SYSTEM POTASSIUM 4.7 3.5 - 4.9 mmol/L INTERFACE SYSTEM CHLORIDE 99 96 - 108 mmol/L INTERFACE SYSTEM CO2 29 22 - 30 mmol/L INTERFACE SYSTEM SODIUM 139 135 - 145 mmol/L INTERFACE SYSTEM Comment:Results confirmed by 2nd methodology. 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
--- OUTSIDE RECORDS SUMMARY | 2024-10-08 18:13 | XMS_ITS | Encounter Summary ---
Author Organization [facility] Address [address] [place] [address] Care Team Providers Care Middle School Spanish Teacher Name Role Phone Kushal Son MD Primary Care Provider [phone] Encounter Details Date Type Department Care Team (Latest Contact Info) Description 04/19/2006 [facility] Kushal [address] [place] [address] Pain in Soft Tissues of Limb (Primary Dx) Social History Tobacco Use Types Packs/Day Years Used Date Smoking Tobacco: Never Assessed Comments Unknown Sex and Gender Information Value Date Recorded Sex Assigned at Not on file Legal Sex Female 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
--- OUTSIDE RECORDS SUMMARY | 2024-10-08 18:13 | XMS_ITS | Encounter Summary ---
Author Organization [facility] Address [address] [facility] Attn: [place] [address] Care Team Providers Care Press Operator Instant Print Shop Name Role Phone Kushal Son MD Primary Care Provider [phone] Encounter Details Date Type Department Care Team (Late st Contact Info) Description 11/11/1989 Outpatient Historical Adelaida, MD Kushal [address] [place] [phone] Social History Tobacco Use Types Packs/Day Years Used Date Smoking Tobacco: Never Assessed Comments Unknown Sex and Gender Information Value Date Recorded Sex Assigned at Not on file Legal Sex Female 5:19 AM LABEL CODER Gender Identity Not on file Sexual Orientation Not on file documented as of this encounter Plan of Treatment Not on file documented as of this encounter Visit Diagnoses Not on filedocumented in this encounter Care Teams Press Operator Instant Print Shop Relationship Specialty Start Date End Date Kushal Son MD [address] [place] [address] PCP - General 09/05/01 documented as of this encounter
--- OUTSIDE RECORDS SUMMARY | 2024-10-08 18:13 | XMS_ITS | Encounter Summary ---
Author Organization [facility] Address [address] [place] [address] Care Team Providers Care Dialysis Registered Nurse Name Role Phone Kushal Son MD Primary Care Provider [phone] Encounter Details Date Type Department Care Team (Late st Contact Info) Description 10/15/2003 Outpatient Historical Division of Neurology [address] [address] Cynthia Monroe MD [address] [place] [address] Social History Tobacco Use Types Packs/Day Years Used Date Smoking Tobacco: Never Assessed Comments Unknown Sex and Gender Information Value Date Recorded Sex Assigned at Not on file Legal Sex Female 5:19 AM CATEGORY DIRECTOR Gender Identity Not on file Sexual Orientation Not on file documented as of this encounter Plan of Treatment Not on file documented as of this encounter Visit Diagnoses Not on filedocumented in this encounter Care Teams Dialysis Registered Nurse Relationship Specialty Start Date End Date Kushal Son MD [address] [place] [address] PCP - General 09/05/01 documented as of this encounter
--- OUTSIDE RECORDS SUMMARY | 2024-10-08 18:13 | XMS_ITS | Encounter Summary ---
Author Organization [facility] Address [address] [facility] Attn: [place] [address] Care Team Providers Care Boiler Tester Name Role Phone Kushal Son MD Primary Care Provider [phone] Encounter Details Date Type Department Care Team (Late st Contact Info) Description 10/14/1989 Outpatient Historical Adelaida, MD Kushal [address] [place] [phone] Social History Tobacco Use Types Packs/Day Years Used Date Smoking Tobacco: Never Assessed Comments Unknown Sex and Gender Information Value Date Recorded Sex Assigned at Not on file Legal Sex Female 5:19 AM TARGETEER Gender Identity Not on file Sexual Orientation Not on file documented as of this encounter Plan of Treatment Not on file documented as of this encounter Visit Diagnoses Not on filedocumented in this encounter Care Teams Boiler Tester Relationship Specialty Start Date End Date Kushal Son MD [address] [place] [address] PCP - General 09/05/01 documented as of this encounter
--- OUTSIDE RECORDS SUMMARY | 2024-10-08 18:13 | XMS_ITS | Encounter Summary ---
Author Organization [facility] [email or web address] Address 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
--- OUTSIDE RECORDS SUMMARY | 2024-10-08 18:13 | XMS_ITS | Clinical Summary ---
Author Organization [facility] Address [address] [place] [address] Phone Care Team Providers Care Assembler Skylights Name Role Phone Kushal Son MD Primary Care Provider [phone] Medications trimethoprim-sul famethoxazole (BACTRIM DS) 800-160 mg Oral tablet Take 1 Tab by mouth 2 times daily. 10 Tab 0 2010 Active triamterene-hydr ochlorothiazide (DYAZIDE) 37.5-25 mg Oral capsule Take 1 Cap by mouth daily stone polisher hand. 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 Gender Identity Not on file Sexual Orientation Not on file Plan of Treatment Health Maintenance Due Date Last Done Comments DTAP/TDAP/TD VACCINES (1 - Tdap) 1990 HEPATITIS B VACCINES (1 of 3 - 19+ 3-dose series) 1990 PAP SMEAR 01/29/1992 CERVICAL CANCER SCREENING 2001 HPV/Cotest 2001 PAP SMEAR 2001 BREAST CANCER SCREENING 2011 COLORECTAL SCREENING 01/29/2016 Colorectal Cancer Screening 01/29/2016 FIT-DNA Q 3 years 01/29/2016 FIT/FOBT Q 1 year 01/29/2016 Flex Sig/CT Colonography Q 5 years 01/29/2016 ZOSTER VACCINE (1 of 2) 2021 INFLUENZA VACCINE (#1) 2024 PNEUMOCOCCAL VACCINE 0-49 YEARS Aged Out No longer eligible based on patient's age to complete this topic Care Teams Assembler Skylights Relationship Specialty Start Date End Date Kushal Son MD [address] [place] [address] PCP - General 09/05/01
--- OUTSIDE RECORDS SUMMARY | 2024-10-08 18:13 | XMS_ITS | Encounter Summary ---
Author Organization [facility] Address [address] [place] [address] Care Team Providers Care Vp Strategic Partnerships Name Role Phone Kushal Son MD Primary Care Provider [phone] Encounter Details Date Type Department Care Team (Late st Contact Info) Description 05/14/2002 Outpatient Historical Division of Neurology [address] [address] Cynthia Monroe MD [address] [place] [address] Social History Tobacco Use Types Packs/Day Years Used Date Smoking Tobacco: Never Assessed Comments Unknown Sex and Gender Information Value Date Recorded Sex Assigned at Not on file Legal Sex Female 5:19 AM CIRCUIT MANAGER Gender Identity Not on file Sexual Orientation Not on file documented as of this encounter Plan of Treatment Not on file documented as of this encounter Visit Diagnoses Not on filedocumented in this encounter Care Teams Vp Strategic Partnerships Relationship Specialty Start Date End Date Kushal Son MD [address] [place] [address] PCP - General 09/05/01 documented as of this encounter
--- OUTSIDE RECORDS SUMMARY | 2024-10-08 18:13 | XMS_ITS | Encounter Summary ---
Author Organization [facility] Address [address] [place] [address] Care Team Providers Care Japanese Professor Name Role Phone Kushal Son MD Primary Care Provider [phone] Encounter Details Date Type Department Care Team (Latest Contact Info) Description 09/05/2001 [facility] Kushal [address] [place], [place] [phone] FUNCT DIS INTESTINE NOS (Primary Dx) Social History Tobacco Use Types Packs/Day Years Used Date Smoking Tobacco: Never Assessed Comments Unknown Sex and Gender Information Value Date Recorded Sex Assigned at Not on file Legal Sex Female 5:19 AM SKI TOW OPERATOR Gender Identity Not on file Sexual Orientation Not on file documented as of this encounter Plan of Treatment Not on file documented as of this encounter Visit Diagnoses Diagnosis Unspecified functional disorder of intestine- Primary documented in this encounter Care Teams Japanese Professor Relationship Specialty Start Date End Date Kushal Son MD [address] [place], [place] [address] PCP - General 09/05/01 documented as of this encounter
== END ==
LOC: ANHLAB 15:43
PROVIDERS: PCP Family Medicine; Visit Provider Plastic Surgery
DX: C44.92 Squamous cell carcinoma of skin, unspecified (principal)
CPT/HCPCS: 88305

== ENCOUNTER 2025-01-07 06:58 | Outpatient (CLI) | payer OTHER, SELFPAY ==
[2025-01-07 08:07] LABS: Alanine Aminotransferase 24 U/L (6-35); Albumin Level 4.5 g/dL (3.5-5.1); Alkaline Phosphatase 113 U/L (38-126); Anion Gap 11 mmol/L (4-12); Aspartate Amino Transferase 29 U/L (14-36); Bilirubin,Total 0.3 mg/dL (0.2-1.3); Blood Urea Nitrogen 17 mg/dL (7-17); Calcium 9.5 mg/dL (8.4-10.2); Carbon Dioxide 24 mmol/L (22-30); Chloride 104 mmol/L (98-107); Cholesterol 234 mg/dL (0-200); Estimated Glomerular Filt Rate > 60; Glucose 101 mg/dL (65-110); HDL Direct 70 mg/dL; Potassium 3.5 mmol/L (3.4-5.0); Sodium 139 mmol/L (137-145); Total Protein 8.3 g/dL (6.3-8.2); Triglycerides 131 mg/dL (<150)
[2025-01-07 08:17] LABS: LDL Cholesterol Direct 102 mg/dL
[2025-01-07 08:23] LABS: Hemoglobin A1C 5.9 % (<5.7)
== END 2025-01-07 06:59 | disposition home or self-care (01) ==
LOC: ANHLAB 06:59
PROVIDERS: PCP Family Medicine; Visit Provider Internal Medicine Cardiovascular Disease
DX: E78.5 Hyperlipidemia, unspecified (principal); R73.03 Prediabetes
CPT/HCPCS: 36415; 80053; 80061; 83036

== ENCOUNTER 2025-01-10 14:37 | Outpatient (CLI) | payer OTHER, SELFPAY ==
--- NOTE | ~2025-01-10 | MM_ITS ---
EXAMINATION: MM screening cameron BI w carlene HISTORY: Screening TECHNIQUE: Craniocaudal and mediolateral oblique 3-D tomosynthesis images were obtained and synthetic 2-D images were generated. CAD analysis was submitted and interpreted. COMPARISON: 09/29/2023 BREAST PARENCHYMAL COMPOSITION: Not dense. There are scattered areas of fibroglandular density. FINDINGS: Punctate calcifications detected bilaterally, stable and benign in appearance, dermal in or igin. Stable parenchymal pattern without suspicious microcalcifications, architectural distortion, discrete masses or significant asymmetry. IMPRESSION: 1. No mammographic evidence of malignancy. 2. Recommend routine screening mammography in one year. BI-RADS Category 2: Benign finding(s). Reviewed, dictated and finalized at location []
== END 2025-01-10 14:38 | disposition home or self-care (01) ==
LOC: ANHIMG 14:39
PROVIDERS: PCP Family Medicine; Visit Provider Obstetrics & Gynecology Gynecology
DX: Z12.31 Encounter for screening mammogram for malignant neoplasm of breast (principal)
CPT/HCPCS: 77063; 77067

== ENCOUNTER 2025-03-12 14:28 | Outpatient (CLI) | payer OTHER, SELFPAY ==
--- NOTE | ~2025-03-12 | DEXA_ITS ---
Bone Density Report Name: JAYME NAVARRO Age: 55 Sex: Female Ethnicity: White Date of : 1970 Indication: postmenopausal; screening for osteoporosis; cancer; seizure disorder; Referring Provider: IRON HURD Study: Bone densitometry was performed. Exam Date: March 12, 2025 Accession number: [id number] Bone Density: Region BMD T-score Z-score Classification AP Spine(L1-L4) 1.046 0.0 1.0 Normal Femoral Neck (Left) 0.837 -0.1 0.9 Normal Total Hip (Left) 1.026 0.7 1.3 Normal Femoral Neck (Right) 0.877 0.2 1.2 Normal Total Hip (Right) 1.050 0.9 1.5 Normal Total Hip Mean 1.038 0.8 1.4 Normal World Health Organization criteria for BMD impression classify patients as: Normal (T-score at or above -1.0), Osteopenia (T-score between -1.0 and -2.5), or Osteoporosis (T-score at or below -2.5). 10-year Fracture Risk: FRAX not reported because: All T-scores for Spine Total, Hip Total, Femoral Neck at or above -1.0 Clinical Information Provided by Patient: Has the following medical conditions: Any Seizure Disorders, Cancer Patient maximum height was 63.0 Menopause Age: 53 No regular weight bearing exercise Does not regularly consume dairy products Onset of menses at age 16 Number of children 1 Impression: The patient has normal bone mass. Discussion: BONE DENSITY IS ABOVE THE MINIMUM DESIRABLE LEVEL AT ALL SKELETAL SITES TESTED. This patient?s bone mineral density is above the minimum desirable level (T-score -1.0 or better) at all sites measured. The patient should follow a healthful lifestyle (good nutrition with adequate calcium and vitamin D, and appropriate weight-bearing exercise). Follow-Up: Consider repeating this study in 5 years or sooner if there is some new clinical indication. Reported by: PEACE on 03/12/2025 3:04:00 PM. Reviewed, dictated and finalized at location A.
--- OUTSIDE RECORDS SUMMARY | 2025-03-12 14:35 | XMS_ITS | Encounter Summary ---
Author Organization [facility] Address [address] [place] [address] Care Team Providers Care Executive Assistant To President Name Role Phone Kushal Son MD Primary Care Provider [phone] Encounter Details Date Type Department Care Team (Late st Contact Info) Description 05/06/2003 Outpatient Historical [facility] AdelaidaKushal ordonez MD [address] [place] [phone] DYSPHAGIA (Primary Dx) Social History Tobacco Use Types Packs/Day Years Used Date Smoking Tobacco: Never Assessed Comments Unknown Sex and Gender Information Value Date Recorded Sex Assigned at Not on file Legal Sex Female 5:19 AM SCOURER Gender Identity Not on file Sexual Orientation Not on file documented as of this encounter Plan of Treatment Not on file documented as of this encounter Visit Diagnoses Diagnosis Dysphagia- Primary documented in this encounter Care Teams Executive Assistant To President Relationship Specialty Start Date End Date Kushal Son MD [address] [place] [address] PCP - General 09/05/01 documented as of this encounter
--- OUTSIDE RECORDS SUMMARY | 2025-03-12 14:35 | XMS_ITS | Encounter Summary ---
Author Organization [facility] [facility] Address 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
--- OUTSIDE RECORDS SUMMARY | 2025-03-12 14:35 | XMS_ITS | Encounter Summary ---
Author Organization [facility] Address [address] [place] [address] Care Team Providers Care Clinical Education Academic Coordinator Name Role Phone Kushal Son MD Primary Care Provider [phone] Encounter Details Date Type Department Care Team (Latest Contact Info) Description 04/19/2006 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
--- OUTSIDE RECORDS SUMMARY | 2025-03-12 14:35 | XMS_ITS | Encounter Summary ---
Author Organization [facility] Address 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
--- OUTSIDE RECORDS SUMMARY | 2025-03-12 14:35 | XMS_ITS | Encounter Summary ---
Author Organization [facility] Address [address] [place] [address] Care Team Providers Care Enterprise Infrastructure Architect Name Role Phone Kushal Son MD Primary Care Provider [phone] Encounter Details Date Type Department Care Team (Latest Contact Info) Description 09/05/2001 [facility] Kushal [address] [place], [place] [id number] FUNCT DIS INTESTINE NOS (Primary Dx) Social History Tobacco Use Types Packs/Day Years Used Date Smoking Tobacco: Never Assessed Comments Unknown Sex and Gender Information Value Date Recorded Sex Assigned at Not on file 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
--- OUTSIDE RECORDS SUMMARY | 2025-03-12 14:35 | XMS_ITS | Encounter Summary ---
Author Organization [facility] Address [address] [facility] Attn: [place] [address] Care Team Providers Care Admission Liaison Name Role Phone Kushal Son MD Primary Care Provider Encounter Details Date Type Department Care Team (Late st Contact Info) Description 06/14/1996 Outpatient Historical Conversion, History AdelaidaKushal ordonez MD [address] [place] [address] Social History Tobacco Use Types Packs/Day Years Used Date Smoking Tobacco: Never Assessed Comments Unknown Sex and Gender Information Value Date Recorded Sex Assigned at Not on file 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
--- OUTSIDE RECORDS SUMMARY | 2025-03-12 14:35 | XMS_ITS | Clinical Summary ---
Author Organization [facility] Address [address] [place] [address] Phone Care Team Providers Care Vault Worker Name Role Phone Kushal Son MD Primary Care Provider [phone] Medications trimethoprim-sul famethoxazole (BACTRIM DS) 800-160 mg Oral tablet Take 1 Tab by mouth 2 times daily. 10 Tab 0 2010 Active triamterene-hydr ochlorothiazide (DYAZIDE) 37.5-25 mg Oral capsule Take 1 Cap by mouth daily steam clean machine operator. 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 Sex Female 5:19 AM RECORDING CLERK Gender Identity Not on file Sexual Orientation Not on file Plan of Treatment Health Maintenance Due Date Last Done Comments DTAP/TDAP/TD VACCINES (1 - Tdap) 1990 HEPATITIS B VACCINES (1 of 3 - 19+ 3-dose series) 01/14 HPV/Cotest (21-29) 01/29/1992 CERVICAL CANCER SCREENING 2001 HPV/Cotest (30-65) 2001 PAP SMEAR 2001 BREAST CANCER SCREENING 2011 COLORECTAL SCREENING 01/29/2016 Colorectal Cancer Screening 01/29/2016 FIT-DNA Q 3 years 01/29/2016 FIT/FOBT Q 1 year 01/29/2016 Flex Sig/CT Colonography Q 5 years 01/29/2016 ZOSTER VACCINE (1 of 2) 2021 INFLUENZA VACCINE (#1) 2025 Care Teams Vault Worker Relationship Specialty Start Date End Date Kushal Son MD 1 [facility] [address] [place] [address] PCP - General 09/05/01
--- OUTSIDE RECORDS SUMMARY | 2025-03-12 14:35 | XMS_ITS | Encounter Summary ---
Author Organization [facility] Address [address] [place] [address] Care Team Providers Care What Job Titles Mean Name Role Phone Kushal Son MD Primary Care Provider [phone] Encounter Details Date Type Department Care Team (Latest Contact Info) Description 01/29/2005 Outpatient Historical HIS [facility] Kushal Larose MD [address] [facility] [address] [place] [address] UNCER EVAN ENDOCRINE NEC (Primary Dx) Social History Tobacco Use Types Packs/Day Years Used Date Smoking Tobacco: Never Assessed Comments Unknown Sex and Gender Information Value Date Recorded Sex Assigned at Not on file Legal Sex Female 5:19 AM OB GYN PHYSICIAN ASSISTANT Gender Identity Not on file Sexual Orientation [...] ORDERABLES Final Resu lt Performing Organization Address [facility] Phone Number INTERFACE SYSTEM Refer to clinic/hospital [...] ORDERABLES Final Resu lt Performing Organization Address [facility] Phone Number INTERFACE SYSTEM Refer to clinic/hospital department * TSH (01/29/2005 10:29 AM CDT) TSH 1.03 0.27 - 4.20 uU/mL INTERFACE SYSTEM 01/29/2005 10:2 9 AM CDT Kushal Son MD CHEMISTRY ORDERABLES Final Resul t Performing Organization Address [facility] Phone Number INTERFACE SYSTEM Refer to clinic/hospital department * T4 FREE (01/29/2005 10:29 AM CDT) T4 FREE 1.4 0.9 - 1.7 ng/dL INTERFACE SYSTEM 01/29/2005 10:2 9 AM CDT Kushal Son MD CHEMISTRY ORDERABLES Final Resul t Performing Organization Address [facility]/ZIP Co de Phone Number INTERFACE SYSTEM Refer [...] ORDERABLES Final Resul t Performing Organization Address [facility] Co de Phone Number INTERFACE SYSTEM Refer [...] Primary documented in this encounter Care Teams What Job Titles Mean Relationship Specialty Start Date End Date Kushal Son MD [address] [place] [address] PCP - General 09/05/01 documented as of this encounter
--- OUTSIDE RECORDS SUMMARY | 2025-03-12 14:35 | XMS_ITS | Encounter Summary ---
Author Organization [facility] Address [address] [place] [address] Care Team Providers Care Successfactors Consultant Name Role Phone Kushal Son MD Primary Care Provider [phone] Encounter Details Date Type Department Care Team (Latest Contact Info) Description 12/14/2002 Outpatient Historical HIS [facility] JESSICA Son, MD Kushal [address] [place], [place] [phone] ROUTINE MEDICAL EXAM (Primary Dx) Social History Tobacco Use Types Packs/Day Years Used Date Smoking Tobacco: Never Assessed Comments Unknown Sex and Gender Information Value Date Recorded Sex Assigned at Not on file Legal Sex Female 5:19 AM YEAST MAKER Gender Identity Not on file Sexual Orientation Not on file documented as of this encounter Plan of Treatment Not on file documented as of this encounter Visit Diagnoses Diagnosis Routine general medical examination at a health care facility- Primary documented in this encounter Care Teams Successfactors Consultant Relationship Specialty Start Date End Date Kushal Son MD [address] [place], [place] [address] PCP - General 09/05/01 documented as of this encounter
--- OUTSIDE RECORDS SUMMARY | 2025-03-12 14:35 | XMS_ITS | Encounter Summary ---
Author Organization [facility] Address [address] [facility] [address] Attn: [place] [address] Care Team Providers Care Stna Name Role Phone Kushal Son MD Primary Care Provider [phone] Encounter Details Date Type Department Care Team (Late st Contact Info) Description 11/11/1989 Outpatient Historical AdelaidaKushal MD [address] [place] [phone] Social History Tobacco Use Types Packs/Day Years Used Date Smoking Tobacco: Never Assessed Comments Unknown Sex and Gender Information Value Date Recorded Sex Assigned at Not on file Legal Sex Female 5:19 AM GI ASST Gender Identity Not on file Sexual Orientation Not on file documented as of this encounter Plan of Treatment Not on file documented as of this encounter Visit Diagnoses Not on filedocumented in this encounter Care Teams Stna Relationship Specialty Start Date End Date Kushal Son MD [address] [place] [address] PCP - General 09/05/01 documented as of this encounter
--- OUTSIDE RECORDS SUMMARY | 2025-03-12 14:35 | XMS_ITS | Encounter Summary ---
Author Organization [facility] Address [address] [place] [address] Care Team Providers Care Used Car Lot Porter Name Role Phone Kushal Son MD Primary Care Provider [phone] Encounter Details Date Type Department Care Team (Late st Contact Info) Description 09/05/1998 Outpatient Historical HIS [facility] Cynthia Monroe MD [address] [place] [id number] Dizziness and giddiness (Primary Dx) Social History Tobacco Use Types Packs/Day Years Used Date Smoking Tobacco: Never Assessed Comments Unknown Sex and Gender Information Value Date Recorded Sex Assigned at Not on file Legal Sex Female 5:19 AM TESTER REGULATOR Gender Identity Not on file Sexual Orientation Not on file documented as of this encounter Plan of Treatment Not on file documented as of this encounter Visit Diagnoses Diagnosis Dizziness and giddiness- Primary documented in this encounter Care Teams Used Car Lot Porter Relationship Specialty Start Date End Date Kushal Son MD [address] [place] [address] PCP - General 09/05/01 documented as of this encounter
--- OUTSIDE RECORDS SUMMARY | 2025-03-12 14:35 | XMS_ITS | Encounter Summary ---
Author Organization [facility] Address [address] [place] [address] Care Team Providers Care Rug Setter Velvet Name Role Phone Kushal Son MD Primary Care Provider [phone] Encounter Details Date Type Department Care Team (Late st Contact Info) Description 10/15/2003 Outpatient Historical Division of Neurology [address] [address] Cynthia Monroe MD [address] [place] [address] Social History Tobacco Use Types Packs/Day Years Used Date Smoking Tobacco: Never Assessed Comments Unknown Sex and Gender Information Value Date Recorded Sex Assigned at Not on file Legal Sex Female 5:19 AM LIABILITY 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
--- OUTSIDE RECORDS SUMMARY | 2025-03-12 14:35 | XMS_ITS | Encounter Summary ---
Author Organization [facility] Address [address] [place] [address] Care Team Providers Care Laundry Machine Operator Name Role Phone Kushal Son MD Primary Care Provider [phone] Encounter Details Date Type Department Care Team (Late st Contact Info) Description 05/14/2002 Outpatient Historical Division of Neurology [address] [address] Cynthia Monroe MD [address] [place] [address] Social History Tobacco Use Types Packs/Day Years Used Date Smoking Tobacco: Never Assessed Comments Unknown Sex and Gender Information Value Date Recorded Sex Assigned at Not on file Legal Sex Female 5:19 AM CART ATTENDANT Gender Identity Not on file Sexual Orientation Not on file documented as of this encounter Plan of Treatment Not on file documented as of this encounter Visit Diagnoses Not on filedocumented in this encounter Care Teams Laundry Machine Operator Relationship Specialty Start Date End Date Kushal Son MD [address] [place] [address] PCP - General 09/05/01 documented as of this encounter
--- OUTSIDE RECORDS SUMMARY | 2025-03-12 14:35 | XMS_ITS | Encounter Summary ---
Author Organization [facility] Address [address] [place] [address] Care Team Providers Care Glove Turner And Former Name Role Phone Kushal Son MD Primary Care Provider [phone] Encounter Details Date Type Department Care Team (Latest Contact Info) Description 01/03/[address] 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
--- OUTSIDE RECORDS SUMMARY | 2025-03-12 14:35 | XMS_ITS | Encounter Summary ---
Author Organization [facility] Address [address] [facility] Attn: [place] [address] Care Team Providers Care Cooler Servicer Name Role Phone Kushal Son MD Primary Care Provider [phone] Encounter Details Date Type Department Care Team (Late st Contact Info) Description 09/30/1989 Outpatient Historical AdelaidaKushal MD [address] [place] [phone] Social History Tobacco Use Types Packs/Day Years Used Date Smoking Tobacco: Never Assessed Comments Unknown Sex and Gender Information Value Date Recorded Sex Assigned at Not on file 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
--- OUTSIDE RECORDS SUMMARY | 2025-03-12 14:35 | XMS_ITS | Encounter Summary ---
Author Organization [facility] Address [address] [facility] Attn: [place] [address] Care Team Providers Care Preschool Assistant Director Name Role Phone Kushal Son MD Primary Care Provider [phone] Encounter Details Date Type Department Care Team (Late st Contact Info) Description 10/14/1989 Outpatient Historical AdelaidaKushal MD [address] [place] [phone] Social History Tobacco Use Types Packs/Day Years Used Date Smoking Tobacco: Never Assessed Comments Unknown Sex and Gender Information Value Date Recorded Sex Assigned at Not on file Legal Sex Female 5:19 AM PATENT ENGINEER Gender Identity Not on file Sexual Orientation Not on file documented as of this encounter Plan of Treatment Not on file documented as of this encounter Visit Diagnoses Not on filedocumented in this encounter Care Teams Preschool Assistant Director Relationship Specialty Start Date End Date Kushal Son MD [address] [place] [address] PCP - General 09/05/01 documented as of this encounter
== END 2025-03-12 14:29 | disposition home or self-care (01) ==
LOC: ANHFOHIMG 14:29
PROVIDERS: PCP Nurse Practitioner Family; Visit Provider Internal Medicine
DX: Z78.0 Asymptomatic menopausal state (principal)
CPT/HCPCS: 77080

== ENCOUNTER 2025-04-01 10:37 | Outpatient (CLI) | payer OTHER, SELFPAY ==
[2025-04-01 11:49] LABS: Free T4 Free Thyroxine 1.32 ng/dL (0.78-2.19)
[2025-04-01 12:03] LABS: Thyroid Stimulating Hormone 0.042 uIU/mL (0.465-4.680)
--- OUTSIDE RECORDS SUMMARY | 2025-04-01 12:26 | XMS_ITS | Encounter Summary ---
Author Organization [facility] Address 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
--- OUTSIDE RECORDS SUMMARY | 2025-04-01 12:26 | XMS_ITS | Encounter Summary ---
Author Organization [facility] Address [address] [facility] Attn: [place] [address] Care Team Providers Care Warm In Name Role Phone Kushal Son MD Primary Care Provider [phone] Encounter Details Date Type Department Care Team (Late st Contact Info) Description 10/14/1989 Outpatient Historical AdelaidaKushal MD [address] [place] [phone] Social History Tobacco Use Types Packs/Day Years Used Date Smoking Tobacco: Never Assessed Comments Unknown Sex and Gender Information Value Date Recorded Sex Assigned at Not on file 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
--- OUTSIDE RECORDS SUMMARY | 2025-04-01 12:26 | XMS_ITS | Clinical Summary ---
Author Organization [facility] Address [address] [place] [address] Phone Care Team Providers Care Area Sales Manager Name Role Phone Kushal Son MD Primary Care Provider [phone] Medications trimethoprim-sul famethoxazole (BACTRIM DS) 800-160 mg Oral tablet Take 1 Tab by mouth 2 times daily. 10 Tab 0 2010 Active triamterene-hydr ochlorothiazide (DYAZIDE) 37.5-25 mg Oral capsule Take 1 Cap by mouth daily telephone service representative. 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 Sex Female 5:19 AM SITE INTERPRETER Gender Identity Not on file Sexual Orientation [...] 2021 INFLUENZA VACCINE (#1) 2025 Care Teams Area Sales Manager Relationship Specialty Start Date End Date Kushal Son MD 1 [facility] [address] [place] [address] PCP - General 09/05/01
--- OUTSIDE RECORDS SUMMARY | 2025-04-01 12:26 | XMS_ITS | Encounter Summary ---
Author Organization [facility] Address [address] [facility] Attn: [place] [address] Care Team Providers Care School Administrator Name Role Phone Kushal Son MD Primary Care Provider [phone] Encounter Details Date Type Department Care Team (Late st Contact Info) Description 09/30/1989 Outpatient Historical AdelaidaKushal MD [address] [place] [phone] Social History Tobacco Use Types Packs/Day Years Used Date Smoking Tobacco: Never Assessed Comments Unknown Sex and Gender Information Value Date Recorded Sex Assigned at Not on file 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
--- OUTSIDE RECORDS SUMMARY | 2025-04-01 12:26 | XMS_ITS | Encounter Summary ---
Author Organization [facility] Address [address] [facility] Attn: [place] [address] Care Team Providers Care Children'S Attendant Name Role Phone Kushal Son MD Primary Care Provider [phone] Encounter Details Date Type Department Care Team (Late st Contact Info) Description 11/11/1989 Outpatient Historical AdelaidaKushal MD [address] [place] [phone] Social History Tobacco Use Types Packs/Day Years Used Date Smoking Tobacco: Never Assessed Comments Unknown Sex and Gender Information Value Date Recorded Sex Assigned at Not on file Legal Sex Female 5:19 AM USER EXPERIENCE ARCHITECT Gender Identity Not on file Sexual Orientation Not on file documented as of this encounter Plan of Treatment Not on file documented as of this encounter Visit Diagnoses Not on filedocumented in this encounter Care Teams Children'S Attendant Relationship Specialty Start Date End Date Kushal Son MD [address] [place] [address] PCP - General 09/05/01 documented as of this encounter
--- OUTSIDE RECORDS SUMMARY | 2025-04-01 12:26 | XMS_ITS | Encounter Summary ---
Author Organization [facility] Address [address] [place] [address] Care Team Providers Care Income Tax Advisor Name Role Phone Kushal Son MD Primary Care Provider [phone] Encounter Details Date Type Department Care Team (Latest Contact Info) Description 01/03/2004 Outpatient Historical HIS 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
--- OUTSIDE RECORDS SUMMARY | 2025-04-01 12:26 | XMS_ITS | Encounter Summary ---
Author Organization [facility] Address [address] [place] [address] Care Team Providers Care Binder Chainstitch Name Role Phone Kushal Son MD Primary Care Provider [phone] Encounter Details Date Type Department Care Team (Late st Contact Info) Description 05/06/2003 Outpatient Historical HIS [facility] AdelaidaKushal ordonez MD [address] [place] [id number] DYSPHAGIA (Primary Dx) Social History Tobacco Use Types Packs/Day Years Used Date Smoking Tobacco: Never Assessed Comments Unknown Sex and Gender Information Value Date Recorded Sex Assigned at Not on file Legal Sex Female 5:19 AM AS400 ADMINISTRATOR Gender Identity Not on file Sexual Orientation Not on file documented as of this encounter Plan of Treatment Not on file documented as of this encounter Visit Diagnoses Diagnosis Dysphagia- Primary documented in this encounter Care Teams Binder Chainstitch Relationship Specialty Start Date End Date Kushal Son MD [address] [place] [address] PCP - General 09/05/01 documented as of this encounter
--- OUTSIDE RECORDS SUMMARY | 2025-04-01 12:26 | XMS_ITS | Encounter Summary ---
Author Organization [facility] Address [address] [facility] Attn: [place] [address] Care Team Providers Care City Editor Name Role Phone Kushal Son MD Primary Care Provider [phone] Encounter Details Date Type Department Care Team (Late st Contact Info) Description 06/14/1996 Outpatient Historical Conversion, History AdelaidaKushal ordonez MD [address] [place] [address] Social History Tobacco Use Types Packs/Day Years Used Date Smoking Tobacco: Never Assessed Comments Unknown Sex and Gender Information Value Date Recorded Sex Assigned at Not on file Legal Sex Female 5:19 AM ANSWERING SERVICE TELEPHONE OPERATOR Gender Identity Not on file Sexual Orientation Not on file documented as of this encounter Plan of Treatment Not on file documented as of this encounter Visit Diagnoses Not on filedocumented in this encounter Care Teams City Editor Relationship Specialty Start Date End Date Kushal Son MD [address] [place] [address] PCP - General 09/05/01 documented as of this encounter
--- OUTSIDE RECORDS SUMMARY | 2025-04-01 12:26 | XMS_ITS | Encounter Summary ---
Author Organization [facility] Address [address] [place] [address] Care Team Providers Care Electrician Maintenance Name Role Phone Kushal Son MD Primary Care Provider [phone] Encounter Details Date Type Department Care Team (Latest Contact Info) Description 01/29/2005 Outpatient Historical HIS [facility] Kushal Larose MD [address] [facility] [address] [place] [address] UNCER EVAN ENDOCRINE NEC (Primary Dx) Social History Tobacco Use Types Packs/Day Years Used Date Smoking Tobacco: Never Assessed Comments Unknown Sex and Gender Information Value Date Recorded Sex Assigned at Not on file Legal Sex Female 5:19 AM HAND TRUCKER Gender Identity Not on file Sexual Orientation [...] ORDERABLES Final Resu lt Performing Organization Address [facility] Phone Number INTERFACE SYSTEM Refer to [...] INTERFACE SYSTEM 01/29/2005 10:2 9 AM CDT Ksuhal Son MD HEMATOLOGY ORDERABLES Final Resu lt Performing Organization Address [facility] Phone Number INTERFACE SYSTEM Refer to clinic/hospital department * TSH (01/29/2005 10:29 AM CDT) TSH 1.03 0.27 - 4.20 uU/mL INTERFACE SYSTEM 01/29/2005 10:2 9 AM CDT Kushal Son MD CHEMISTRY ORDERABLES Final Resul t Performing Organization Address City/[facility] Phone Number INTERFACE SYSTEM Refer to clinic/hospital department * T4 FREE (01/29/2005 10:29 AM CDT) T4 FREE 1.4 0.9 - 1.7 ng/dL INTERFACE SYSTEM 01/29/2005 10:2 9 AM CDT Kushal Son MD CHEMISTRY ORDERABLES Final Resul t Performing Organization Address City/[facility]/ZIP Co de Phone Number INTERFACE SYSTEM Refer [...] ORDERABLES Final Resul t Performing Organization Address City/[facility] Co de Phone Number INTERFACE [...] Primary documented in this encounter Care Teams Electrician Maintenance Relationship Specialty Start Date End Date Kushal Son MD [address] [place] [address] PCP - General 09/05/01 documented as of this encounter
--- OUTSIDE RECORDS SUMMARY | 2025-04-01 12:26 | XMS_ITS | Encounter Summary ---
Author Organization [facility] Address 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
--- OUTSIDE RECORDS SUMMARY | 2025-04-01 12:26 | XMS_ITS | Encounter Summary ---
Author Organization [facility] Address [address] [place] [address] Care Team Providers Care Trampoline Team Coach Name Role Phone Kushal Son MD Primary Care Provider [phone] Encounter Details Date Type Department Care Team (Latest Contact Info) Description 04/19/2006 [facility] [address] [place] [address] Pain in Soft Tissues of Limb (Primary Dx) Social History Tobacco Use Types Packs/Day Years Used Date Smoking Tobacco: Never Assessed Comments Unknown Sex and Gender Information Value Date Recorded Sex Assigned at Not on file Legal Sex Female 5:19 AM DISPENSARY ATTENDANT Gender Identity Not on file Sexual Orientation Not on file documented as of this encounter Plan of Treatment Not on file documented as of this encounter Visit Diagnoses Diagnosis Pain in limb- Primary documented in this encounter Care Teams Trampoline Team Coach Relationship Specialty Start Date End Date Kushal Son MD [address] [place] [address] PCP - General 09/05/01 documented as of this encounter
--- OUTSIDE RECORDS SUMMARY | 2025-04-01 12:26 | XMS_ITS | Encounter Summary ---
Author Organization [facility] Address [address] [place] [address] Care Team Providers Care Sap Bpc Developer Name Role Phone Kushal Son MD Primary Care Provider [phone] Encounter Details Date Type Department Care Team (Late st Contact Info) Description 05/14/2002 Outpatient Historical Division of Neurology [address] [address] Cynthia Monroe MD [address] [place] [address] Social History Tobacco Use Types Packs/Day Years Used Date Smoking Tobacco: Never Assessed Comments Unknown Sex and Gender Information Value Date Recorded Sex Assigned at Not on file Legal Sex Female 5:19 AM INJECTION MOLDING SUPERVISOR Gender Identity Not on file Sexual Orientation Not on file documented as of this encounter Plan of Treatment Not on file documented as of this encounter Visit Diagnoses Not on filedocumented in this encounter Care Teams Sap Bpc Developer Relationship Specialty Start Date End Date Kushal Son MD [address] [place] [address] PCP - General 09/05/01 documented as of this encounter
--- OUTSIDE RECORDS SUMMARY | 2025-04-01 12:26 | XMS_ITS | Encounter Summary ---
Author Organization [facility] Address [address] [place] [address] Care Team Providers Care Operating Room Surgical Technician Name Role Phone Kushal Son MD Primary Care Provider [phone] Encounter Details Date Type Department Care Team (Late st Contact Info) Description 10/15/2003 Outpatient Historical Division of Neurology [address] [address] Cynthia Monroe MD [address] [place] [address] Social History Tobacco Use Types Packs/Day Years Used Date Smoking Tobacco: Never Assessed Comments Unknown Sex and Gender Information Value Date Recorded Sex Assigned at Not on file Legal Sex Female 5:19 AM DYE AND CHEMICAL COORDINATOR Gender Identity Not on file Sexual Orientation Not on file documented as of this encounter Plan of Treatment Not on file documented as of this encounter Visit Diagnoses Not on filedocumented in this encounter Care Teams Operating Room Surgical Technician Relationship Specialty Start Date End Date Kushal Son MD [address] [place] [address] PCP - General 09/05/01 documented as of this encounter
--- OUTSIDE RECORDS SUMMARY | 2025-04-01 12:26 | XMS_ITS | Encounter Summary ---
Author Organization [facility] Address 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
--- OUTSIDE RECORDS SUMMARY | 2025-04-01 12:26 | XMS_ITS | Encounter Summary ---
Author Organization [facility] Address 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
--- OUTSIDE RECORDS SUMMARY | 2025-04-01 12:26 | XMS_ITS | Encounter Summary ---
Author Organization [facility] Address [address] [place] [address] Care Team Providers Care Appliance Repairer Name Role Phone Kushal Son MD Primary Care Provider [phone] Encounter Details Date Type Department Care Team (Late st Contact Info) Description 11/29/2000 Outpatient Historical Division of Neurology [address] [address] Cynthia Monroe MD [address] [place] [address] Social History Tobacco Use Types Packs/Day Years Used Date Smoking Tobacco: Never Assessed Comments Unknown Sex and Gender Information Value Date Recorded Sex Assigned at Not on file Legal Sex Female 5:19 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
[2025-04-02 18:08] LABS: Thyroglobulin by IMA YES YES
== END 2025-04-01 10:38 | disposition home or self-care (01) ==
LOC: ANHLAB 10:39
PROVIDERS: PCP Family Medicine; Visit Provider Internal Medicine
DX: E78.5 Hyperlipidemia, unspecified (principal); I10 Essential (primary) hypertension; R73.03 Prediabetes; C73 Malignant neoplasm of thyroid gland; E89.0 Postprocedural hypothyroidism; E66.9 Obesity, unspecified; Z68.39 Body mass index [BMI] 39.0-39.9, adult; Z85.850 Personal history of malignant neoplasm of thyroid
CPT/HCPCS: 36415; 84432; 84439; 84443; 86800

== ENCOUNTER 2025-06-26 08:26 | Emergency (ER) | payer OTHER, SELFPAY ==
--- NOTE | 2025-06-26 08:28 | ED_ITS ---
HPI - URI/Sore Throat General Chief Complaint: Upper Respiratory Infection Stated Complaint: Bodyaches/Fever Time Seen by Provider: 06/26/25 08:28 Source: patient Mode of arrival: ambulatory Limitations: no limitations History of Present Illness HPI Narrative: Patient is a 55-year-old female presenting with body aches, fever, congestion, cough, headache, sore throat, fatigue for 3 days. Patient was seen 2 days ago for same symptoms by PCP and was diagnosed with otitis media. Patient was started on cefdinir at that time and instructed to use Flonase and Mucinex. States she does not feel better. Related Data Allergies Allergy/AdvReac Type Severity Reaction Status Date / Time Penicillins Allergy Intermediate Rash Verified 06/26/25 08:31 Review of Systems Review of Systems: All systems reviewed & are unremarkable except as noted in HPI and below Constitutional: Constitutional: Denies chills, Reports fatigue, Reports fever(s), Reports headache(s), Denies malaise and Denies weakness Eyes: Eyes: Denies blurry vision, Denies itchy eyes and Denies loss of vision ENT: Denies otalgia, Reports headache(s), Reports nasal congestion, Denies sinus pain and Reports sore throat Cardiovascular: Cardiovascular: Denies chest pain, Denies irregular heart rhythm and Denies dyspnea Respiratory: Respiratory: Reports cough and Denies dyspnea Gastrointestinal: Gastrointestinal: Denies abdominal pain, Denies diarrhea, Denies nausea and Denies vomiting Musculoskeletal: Musculoskeletal: Denies back pain, Reports myalgias and Denies arthralgias Integumentary/Breasts: Skin/Breast: Denies pruritus and Denies rash Neurologic: Reports headache(s), Denies loss of vision and Denies weakness Psychiatric: Psychiatric: Reports no additional psychiatric complaints Endocrine: Endocrine: Denies fatigue Allergic/Immunologic: Allergic/Immunologic: Denies itchy eyes PMFSH Past Medical History Medical History At risk for lymphedema Degenerative joint disease of knee Left knee pain Anxiety Obesity (~06/02/23) Papillary thyroid carcinoma Hyperlipidemia Insomnia Plantar fasciitis of right foot Peripheral vascular insufficiency Obesity Right sided sciatica Right knee pain PETE (obstructive sleep apnea) History of thyroid cancer Dyslipidemia Chronic low back pain Dependence on other enabling machines and devices (~2015) Essential (primary) hypertension (~2008) Generalized anxiety disorder (~2008) Hypothyroidism, unspecified (~2001) Left foot pain (~08/11/15) Major depress, part remis (~2008) Nicotine dependence, unspecified, uncomplicated (~2009) PETE on CPAP (~01/11/16) sleep study: 01/11/2016: ESS: 10; AHI: 9; 43 snoring events; 60 O2 desaturations: index=8; 63 inches: 196#; BMI 34.7 Seizure disorder (~1978) petite mal Surgical History Surgical History History of thyroidectomy, total (~2001) Family History Family History Mother Family history of atrial fibrillation, Onset Age: 72 Father Hypertension Heart valve replaced, Onset Age: 72 Heart disease Grandparent Acute myocardial infarction Breast cancer Other History of thyroid disorder aunt Social History Social History Social History: Caffeine-none Smoking packs per day: 0.5 Smoking cigarettes per day: 10.0 Years smoked: 34 Smoking pack-years: 17.00 Smoking status: Former smoker Tobacco type: cigarettes Second hand tobacco smoke exposure: No Smoking end date: 05/04/22 Additional smoking assessment comments: off and on Alcohol intake: never Substance use: never Substance use type: does not use Lack of Transportation: No Lack of Food: Never True Current Housing: I Have Housing Concerned About Future Housing: No Difficulty Paying Gas/Electric Bills: No Difficulty Paying for Meds: No Currently Unemployed: No Education: High School Diploma/GED Difficulty w/ Childcare or Family Care: No Living arrangements: with family Additional living arrangements comments: daughter, single mom; sexually active; has advance directive (per 10/02/2018 health hx form) Occupation/Education: occupation Gender identity (if verbalized by the patient): Female Spiritual care concerns: No Agree to blood products: Yes Comments At time of signature, agree with nursing past medical, surgical, social and family history. There is no relevant family history pertinent to the presenting complaint. Exam Const: General: cooperative, healthy appearing, comfortable, no acute distress and well nourished Nutritional Appearance: well nourished Orientation/consciousness: patient oriented x3 Limitations: no limitations HENMT: Head: normal to inspection, normocephalic and atraumatic Ears: hearing grossly normal bilaterally, external ears normal, TM's normal bilaterally, EAC's normal and no periauricular adenopathy Face/Nose/Sinus: Normal external nose present, Abnormal mucous membranes and turbinates present erythematous bilateral and diffuse, normal facial exam, sinuses nontender and face symmetric Face and sinus: normal facial exam, sinuses nontender and face symmetric Mouth: Yes Normal oral and palatal mucosa present, Yes lip normal, Yes tongue normal, Yes Normal salivary glands and ducts present, Yes oropharynx normal and Yes moist mucous membranes Teeth and gingiva: dentition normal Throat: posterior oropharynx normal, tonsils normal and uvula midline Eyes: General: appearance normal, both eyes and all related structures Alignment and Position: alignment normal and position normal Periorbital: periorbital findings normal Eyelids: eyelids normal Pupils: Equal, round and reactive pupils present Neck: Neck: normal visual inspection, full ROM, no lymphadenopathy and supple Chest: Chest palpation & inspection: normal inspection of the chest and normal palpation of entire chest wall Resp: Effort & Inspection: normal respiratory effort and able to speak in complete sentences Auscultation: clear to auscultation bilaterally, no crackles, no rales, no rhonchi and no wheezes Cardio: Rate: regular rate Rhythm: regular rhythm Heart sounds: S1 normal heart sound present and S2 normal heart sound present GI: Inspection: normal to inspection Skin: General skin exam: normal color and no rashes or lesions noted Neuro: General: patient oriented x3 and moves all extremities Cranial nerves: Yes Equal, round and reactive pupils present Speech: normal speech Gait exam (Neuro): Normal gait present Extrem: General: normal to inspection, full ROM and no edema Psych: Appearance: grossly normal and well kempt Mental Status: mental status grossly normal Speech and movement: Normal speech and movement present Affect: normal affect Attitude: cooperative Thought process: Normal thought process present Course Course Emergency Course: Patient is aware of diagnosis, understands and agrees to treatment plan. Anticipatory guidance given. Patient agrees to follow-up as directed and is aware of reasons to seek care at the emergency department. Portions of this record may have been created with voice recognition software Level of Care: Express Care Visit Vital Signs Vital signs: Vital Signs Temperature 36.3 C L 12/11/25 08:41 Pulse Rate 90 06/26/25 08:41 Respiratory Rate 16 06/26/25 08:41 Blood Pressure 149/87 H 06/26/25 08:41 Pulse Oximetry 99 06/26/25 08:41 Oxygen Delivery Room Air 06/26/25 08:41 Temperature 36.3 C L 06/26/25 08:41 Pulse Rate 90 06/26/25 08:41 Respiratory Rate 16 06/26/25 08:41 Blood Pressure 149/87 H 06/26/25 08:41 Pulse Oximetry 99 06/26/25 08:41 Oxygen Delivery Room Air 06/26/25 08:41 MDM MDM Narrative Medical decision making narrative: Rapid flu, strep were negative. A throat culture is pending. Patient COVID positive. Will send in Flonase and Tessalon Perles Pt well hydrated appearing, in no respiratory distress, hemodynamically stable. Recommend supportive care. The patient is stable at time of discharge the clinical impression was discussed and the patient was given the opportunity to ask questions, which were addressed as completely as possible given the information available at present. Anticipatory guidance and return to care precautions were discussed and the importance of primary care follow-up was stressed and encouraged. The patient voiced understanding of the plan, indications to return, and the need for follow-up. Exam findings show no acute concerns or changes Patient is appropriate for outpatient treatment and follow-up. Differential Diagnosis Differential Diagnosis: Differential diagnosis considered: Khan virus, strep pharyngitis, allergic rhinitis, upper respiratory tract infection, sinusitis, rhinosinusitis, nasopharyngitis. viral pharyngitis, otitis media, otitis externa, otitis effusion, foreign body, cerumen impaction, viral syndrome, and influenza. Medical Records I have reviewed the following patient records and this information was taken into consideration when formulating the assessment and plan.: previous clinic visits Lab Data [facility] Lab Attestation statement: I personally reviewed the patient's lab results. Labs: Lab Results 06/26/25 Range/Units 08:40 POC Influenza A Ag Negative (Negative) POC Influenza B Ag Negative (Negative) POC SARS CoV-2 Ag Positive (Negative) POC Grp A Strep Screen Negative (Negative) Discharge Plan Discharge Clinical Impression: COVID Patient Disposition: Home Condition: Stable Instructions: COVID-19 (Coronavirus Disease 2019) (ED) Additional Instructions: Your rapid COVID test was positive today. The following recommendations have been made by the CDC and local Health Departments, regarding COVID-19: -wear a mask for 5 days, as long as your fever free for 24 hours you could return to work -Majority of mild to moderate cases can be treated at home, without hospitalization or prescription medications You do not need a negative test result to return to work/school, assuming the above recommendations have been met and you are not symptomatic. Treating symptoms for mild to moderate cases may include: -Alternate Tylenol and Motrin per package directions for fever or pain. -Antihistamine medication such as Benadryl/Zyrtec at night and Claritin/Julia during the day can help improve symptoms. -Use Flonase twice a day for 5 days then daily to help reduce the inflammation and dry up your sinuses. -You can also use Sudafed behind the pharmacy counter(12 or 24 hour). Be sure to drink plenty of water with these medications at least 8 ounces with every dose and it is important to drink 8 to 10 glasses of water per day. Water is a natural decongestant Take Motrin alternating with Tylenol for pain and fever alternating every 3 hours. 8 AM: Tylenol 11 AM: Ibuprofen 2 PM: Tylenol 5 PM: Ibuprofen 8 PM: Tylenol 11 PM: Ibuprofen 2 AM: Tylenol 5 AM: Ibuprofen Common Adult Symptoms: Fever/chills Cough Shortness of breath Fatigue, muscle aches Headache Loss of taste/smell Sore throat, congestion, runny nose GI symptoms (nausea, vomiting, diarrhea) Common Pediatric Symptoms Cough Fever GI symptoms (diarrhea, upset stomach, nausea, vomiting) Symptoms may differ in severity however, most cases do not require hospitalization. WHEN TO SEEK ER EVALUATION/TREATMENT: Severe/persistent shortness of breath or difficulty breathing Elevated, persistent fevers without resolution with fever-reducing medications Chest pain Extreme fatigue/lethargy Complications of pre-existing disease Your blood pressure was elevated above 120/80 today at Urgent Care. This puts you above the threshold for follow up visit with a primary care provider. High blood pressure does not usually cause any symptoms, however it may lead to kidney failure, stroke, heart disease just to name a few if untreated . Many people are anxious when seeing a provider or nurse. As a result, you are not diagnosed with hypertension at this time unless your blood pressure is persistently high at two office visits at least one week apart. Some things that can help lower blood pressure are lifestyle modifications, such as light exercise, decreased salt in diet, and weight loss. It is important to follow up with a PCP about this within 1 week. Patient Language: Niuean Prescriptions: New benzonatate 100 mg capsule 100 mg PO BID PRN (Reason: cough) Qty: 14 0RF fluticasone propionate [Flonase Allergy Relief] 50 mcg/actuation spray,suspension 1 spray intranasal DAILY Qty: 16 0RF Rx Instructions: administer into each nostril No Action levothyroxine 175 mcg tablet 175 mcg PO DAILY Qty: 90 3RF omeprazole 20 mg capsule,delayed release(DR/EC) 20 mg PO DAILY Qty: 90 1RF rosuvastatin 5 mg tablet See Rx Instructions .ROUTE .COMPLEX Qty: 30 5RF Dose Instruction: 1 TAB ORALLY DAILY Rx Instructions: 1 TAB ORALLY DAILY buspirone 10 mg tablet 10 mg PO TID PRN (Reason: panic attack(s)) 90 Days Qty: 270 1RF triamterene-hydrochlorothiazid 37.5-25 mg tablet 1 tablet PO DAILY Qty: 90 1RF carbamazepine 200 mg capsule, ER multiphase 12 hr 400 mg PO BID Qty: 120 5RF sertraline 100 mg tablet 100 mg PO BID Qty: 180 1RF clonazepam 2 mg tablet 1 mg PO BID PRN (Reason: anxiety) Qty: 30 1RF tramadol 50 mg tablet 50 mg PO Q12H PRN (Reason: pain) Qty: 30 0RF cyclobenzaprine 10 mg tablet 10 mg PO TID PRN (Reason: muscle spasm) Qty: 60 1RF Follow-up/Referrals: Kwesi Calvin MD [Primary Care Provider, Family Practice] - 3 Days Stand Alone Forms: Work/School Release IP Time of Disposition: 09:03
[2025-06-26 08:41] VITALS: BP 149/87; PULSE 90; RESP 16; TEMP 36.3; O2SAT 99
[2025-06-26 08:55] LABS: EDCOVIDSCREEN Positive (Negative); EDINFLUASCREEN Negative (Negative); EDINFLUBSCREEN Negative (Negative); EDSTREPNEGPOS1 Negative (Negative)
== END 2025-06-26 09:09 | disposition home or self-care (01) ==
PROVIDERS: Emergency Provider Nurse Practitioner Family; PCP Family Medicine
DX: U07.1 COVID-19 (principal); I10 Essential (primary) hypertension; E03.9 Hypothyroidism, unspecified; E78.5 Hyperlipidemia, unspecified; G47.33 Obstructive sleep apnea (adult) (pediatric); F41.1 Generalized anxiety disorder; F32.4 Major depressive disorder, single episode, in partial remission; Z87.891 Personal history of nicotine dependence
CPT/HCPCS: 87081; 87426; 87804; 87880; 99213; G0463

== ENCOUNTER 2025-07-15 07:16 | Outpatient (CLI) | payer OTHER, SELFPAY ==
--- OUTSIDE RECORDS SUMMARY | 2025-07-15 07:20 | XMS_ITS | Encounter Summary ---
Author Organization [employer] Address 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
--- OUTSIDE RECORDS SUMMARY | 2025-07-15 07:20 | XMS_ITS | Encounter Summary ---
Author Organization [id number] Address [address] [place] [address] Care Team Providers Care Premix Operator Concentrate Name Role Phone Kushal Son MD Primary Care Provider [phone] Encounter Details Date Type Department Care Team (Late st Contact Info) Description 10/15/2003 Outpatient Historical Division of Neurology [address] [address] Cynthia Monroe MD [address] [place] [address] Social History Tobacco Use Types Packs/Day Years Used Date Smoking Tobacco: Never Assessed Comments Unknown Sex and Gender Information Value Date Recorded Sex Assigned at Not on file Legal Sex Female 5:19 AM LOCATION DIRECTOR Gender Identity Not on file Sexual Orientation Not on file documented as of this encounter Plan of Treatment Not on file documented as of this encounter Visit Diagnoses Not on filedocumented in this encounter Care Teams Premix Operator Concentrate Relationship Specialty Start Date End Date Kushal Son MD [address] [place] [address] PCP - General 09/05/01 documented as of this encounter
--- OUTSIDE RECORDS SUMMARY | 2025-07-15 07:20 | XMS_ITS | Encounter Summary ---
Author Organization [facility] Address [address] [facility] Attn: [place] [address] Care Team Providers Care Spring Upholsterer Name Role Phone Kushal Son MD Primary Care Provider [phone] Encounter Details Date Type Department Care Team (Late st Contact Info) Description 11/11/1989 Outpatient Historical Adelaida, MD Kushal [address] [place] [phone] Social History Tobacco Use Types Packs/Day Years Used Date Smoking Tobacco: Never Assessed Comments Unknown Sex and Gender Information Value Date Recorded Sex Assigned at Not on file 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
--- OUTSIDE RECORDS SUMMARY | 2025-07-15 07:20 | XMS_ITS | Encounter Summary ---
Author Organization Address [address] [place] [address] Care Team Providers Care Labor Arbitrator Name Role Phone Kushal Son MD Primary Care Provider [phone] Encounter Details Date Type Department Care Team (Latest Contact Info) Description 12/14/2002 [facility] Kushal [address] [place], [place] [phone] ROUTINE MEDICAL EXAM (Primary Dx) Social History Tobacco Use Types Packs/Day Years Used Date Smoking Tobacco: Never Assessed Comments Unknown Sex and Gender Information Value Date Recorded Sex Assigned at Not on file Legal Sex Female 5:19 AM WAXER Gender Identity Not on file Sexual Orientation Not on file documented as of this encounter Plan of Treatment Not on file documented as of this encounter Visit Diagnoses Diagnosis Routine general medical examination at a health care facility- Primary documented in this encounter Care Teams Labor Arbitrator Relationship Specialty Start Date End Date Kushal Son MD [address] [place], [place] [phone] PCP - General 09/05/01 documented as of this encounter
--- OUTSIDE RECORDS SUMMARY | 2025-07-15 07:20 | XMS_ITS | Encounter Summary ---
Author Organization [employer] Address [address] [place] [address] Care Team Providers Care Liquid Sugar Fortifier Name Role Phone Kushal Son MD Primary Care Provider [phone] Encounter Details Date Type Department Care Team (Late st Contact Info) Description 09/05/1998 Outpatient Historical [facility] Cynthia Monroe MD [address] [place] [id number] Dizziness and giddiness (Primary Dx) Social History Tobacco Use Types Packs/Day Years Used Date Smoking Tobacco: Never Assessed Comments Unknown Sex and Gender Information Value Date Recorded Sex Assigned at Not on file Legal Sex Female 5:19 AM MECHANICAL SPECIALIST Gender Identity Not on file Sexual Orientation Not on file documented as of this encounter Plan of Treatment Not on file documented as of this encounter Visit Diagnoses Diagnosis Dizziness and giddiness- Primary documented in this encounter Care Teams Liquid Sugar Fortifier Relationship Specialty Start Date End Date Kushal Son MD [address] [place] [address] PCP - General 09/05/01 documented as of this encounter
--- OUTSIDE RECORDS SUMMARY | 2025-07-15 07:20 | XMS_ITS | Encounter Summary ---
Author Organization [employer] Address [address] [place] [address] Care Team Providers Care Wire Communications Engineer Name Role Phone Kushal Son MD Primary Care Provider [phone] Encounter Details Date Type Department Care Team (Late st Contact Info) Description 06/12/1999 Outpatient Historical [facility]PAT[facility] AdelaidaKushal MD [address] [place] [address] Social History Tobacco Use Types Packs/Day Years Used Date Smoking Tobacco: Never Assessed Comments Unknown Sex and Gender Information Value Date Recorded Sex Assigned at Not on file Legal Sex Female 5:19 AM BIOMEDICAL INSTRUMENT TECHNICIAN Gender Identity Not on file Sexual Orientation Not on file documented as of this encounter Plan of Treatment Not on file documented as of this encounter Visit Diagnoses Not on filedocumented in this encounter Care Teams Wire Communications Engineer Relationship Specialty Start Date End Date Kushal Son MD [address] [place] [phone] PCP - General 09/05/01 documented as of this encounter
--- OUTSIDE RECORDS SUMMARY | 2025-07-15 07:20 | XMS_ITS | Encounter Summary ---
Author Organization [facility] Address [address] [facility] Attn: [place] [address] Care Team Providers Care Holistic Specialist Name Role Phone Kushal Son MD Primary Care Provider [phone] Encounter Details Date Type Department Care Team (Late st Contact Info) Description 09/30/1989 Outpatient Historical AdelaidaKushal MD [address] [place] [phone] Social History Tobacco Use Types Packs/Day Years Used Date Smoking Tobacco: Never Assessed Comments Unknown Sex and Gender Information Value Date Recorded Sex Assigned at Not on file Legal Sex Female 5:19 AM OCEAN EXPORT AGENT Gender Identity Not on file Sexual Orientation Not on file documented as of this encounter Plan of Treatment Not on file documented as of this encounter Visit Diagnoses Not on filedocumented in this encounter Care Teams Holistic Specialist Relationship Specialty Start Date End Date Kushal Son MD [address] [place] [address] PCP - General 09/05/01 documented as of this encounter
--- OUTSIDE RECORDS SUMMARY | 2025-07-15 07:20 | XMS_ITS | Encounter Summary ---
Author Organization [employer] Address [address] [place] [address] Care Team Providers Care Returned Item Clerk Name Role Phone Kushal Son MD Primary Care Provider Encounter Details Date Type Department Care Team (Late st Contact Info) Description 05/06/2003 Outpatient Historical [facility] AdelaidaKushal ordonez MD [address] [place] [phone] DYSPHAGIA (Primary Dx) Social History Tobacco Use Types Packs/Day Years Used Date Smoking Tobacco: Never Assessed Comments Unknown Sex and Gender Information Value Date Recorded Sex Assigned at Not on file Legal Sex Female 5:19 AM CAR WRECKER Gender Identity Not on file Sexual Orientation Not on file documented as of this encounter Plan of Treatment Not on file documented as of this encounter Visit Diagnoses Diagnosis Dysphagia- Primary documented in this encounter Care Teams Returned Item Clerk Relationship Specialty Start Date End Date Kushal Son MD [address] [place] [address] PCP - General 09/05/01 documented as of this encounter
--- OUTSIDE RECORDS SUMMARY | 2025-07-15 07:20 | XMS_ITS | Encounter Summary ---
Author Organization [facility] Address [address] [place] [address] Care Team Providers Care Ultrasonic Cleaner Name Role Phone Kushal Son MD Primary Care Provider [phone] Encounter Details Date Type Department Care Team (Latest Contact Info) Description 01/29/2005 Outpatient Historical HIS [facility] Kushal Larose MD [address] [place] [id number] [facility] ENDOCRINE NEC (Primary Dx) Social History Tobacco Use Types Packs/Day Years Used Date Smoking Tobacco: Never Assessed Comments Unknown Sex and Gender Information Value Date Recorded Sex Assigned at Not on file 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 Gender Identity Not on file Sexual [...] ORDERABLES Final Resu lt Performing Organization Address [facility] Phone Number INTERFACE SYSTEM Refer to clinic/hospital [...] ORDERABLES Final Resu lt Performing Organization Address [facility] Phone Number INTERFACE SYSTEM Refer to clinic/hospital department * TSH (01/29/2005 10:29 AM CDT) TSH 1.03 0.27 - 4.20 uU/mL INTERFACE SYSTEM 01/29/2005 10:2 9 AM CDT Kushal Son MD CHEMISTRY ORDERABLES Final Resul t Performing Organization Address City/[facility] Phone Number INTERFACE SYSTEM Refer to clinic/hospital department * T4 FREE (01/29/2005 10:29 AM CDT) T4 FREE 1.4 0.9 - 1.7 ng/dL INTERFACE SYSTEM 01/29/2005 10:2 9 AM CDT Kushal Son MD CHEMISTRY ORDERABLES Final Resul t Performing Organization Address City/[facility]/ZIP Co de Phone Number INTERFACE SYSTEM Refer [...] ORDERABLES Final Resul t Performing Organization Address [facility] Co de Phone Number INTERFACE SYSTEM [...] Primary documented in this encounter Care Teams Ultrasonic Cleaner Relationship Specialty Start Date End Date Kushal Son MD [address] [place] [address] PCP - General 09/05/01 documented as of this encounter
--- OUTSIDE RECORDS SUMMARY | 2025-07-15 07:20 | XMS_ITS | Encounter Summary ---
Author Organization [facility] Address [address] [facility] [facility] [address] Attn: [place] [address] Care Team Providers Care Dimension Stone Quarry Supervisor Name Role Phone Kushal Son MD Primary Care Provider [phone] Encounter Details Date Type Department Care Team (Late st Contact Info) Description 06/14/1996 Outpatient Historical Conversion, History AdelaidaKushal ordonez MD [address] [place], [place] [id number] Social History Tobacco Use Types Packs/Day Years Used Date Smoking Tobacco: Never Assessed Comments Unknown Sex and Gender Information Value Date Recorded Sex Assigned at Not on file 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
--- OUTSIDE RECORDS SUMMARY | 2025-07-15 07:20 | XMS_ITS | Encounter Summary ---
Author Organization [facility] Address 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
--- OUTSIDE RECORDS SUMMARY | 2025-07-15 07:20 | XMS_ITS | Encounter Summary ---
Author Organization [facility] Address [address] [place] [address] Care Team Providers Care Sulphate Tester Name Role Phone Kushal Son MD Primary Care Provider [phone] Encounter Details Date Type Department Care Team (Latest Contact Info) Description 01/03/2004 Outpatient Historical HIS [facility] JESSICA Son, MD Kushal [address] [place] [address] ENDOCRINE/NERV EVAN NOS (Primary Dx) Social History Tobacco Use Types Packs/Day Years Used Date Smoking Tobacco: Never Assessed Comments Unknown Sex and Gender Information Value Date Recorded Sex Assigned at Not on file Legal Sex Female 5:19 AM 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
--- OUTSIDE RECORDS SUMMARY | 2025-07-15 07:20 | XMS_ITS | Encounter Summary ---
Author Organization [facility] Address 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
--- OUTSIDE RECORDS SUMMARY | 2025-07-15 07:20 | XMS_ITS | Encounter Summary ---
Author Organization [email or web address] Address [address] [facility] Attn: [place] [address] Care Team Providers Care Technical Writing Lead/Mgr Name Role Phone Kushal Son MD Primary Care Provider [phone] Encounter Details Date Type Department Care Team (Late st Contact Info) Description 10/14/1989 Outpatient Historical Adelaida, MD Kushal [address] [place] [id number] Social History Tobacco Use Types Packs/Day Years Used Date Smoking Tobacco: Never Assessed Comments Unknown Sex and Gender Information Value Date Recorded Sex Assigned at Not on file 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
--- OUTSIDE RECORDS SUMMARY | 2025-07-15 07:20 | XMS_ITS | Encounter Summary ---
Author Organization [facility] Address [address] [place] [address] Care Team Providers Care Accounts Receivable Collector Name Role Phone Kushal Son MD Primary Care Provider [phone] Encounter Details Date Type Department Care Team (Latest Contact Info) Description 09/05/2001 [facility] Kushal [address] [place], [place] [phone] FUNCT DIS INTESTINE NOS (Primary Dx) Social History Tobacco Use Types Packs/Day Years Used Date Smoking Tobacco: Never Assessed Comments Unknown Sex and Gender Information Value Date Recorded Sex Assigned at Not on file 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
[2025-07-15 07:35] LABS: Hematocrit 43.7 % (37.0-47.0); Hemoglobin 14.3 g/dL (12.0-15.0); Immature Granulocyte Percent A 0.4 % (0-0.5); Lymphocytes Absolute Auto 2.18 K/mm3 (0.9-3.2); Mean Corpuscular HGB Conc 32.7 g/dl (32-36); Mean Corpuscular Hemoglobin 28.8 pg (26-34); Mean Corpuscular Volume 87.9 fl (80-100); Nucleated Red Blood Cells Absolute Auto 0.000 K/mm3 (0.0-0.012); Nucleated Red Blood Cells Perc 0.0 % (0.0-0.2); Platelet Count Result 256 k/mm3 (150-375); Red Blood Count 4.97 M/mm3 (4.2-5.4); White Blood Count 5.0 K/mm3 (4.5-10.0)
[2025-07-15 07:37] LABS: Add Urine Microscopic? NO; Appearance Urine Clear (Clear); Glucose Urine UA Negative (Negative); Leukocyte Esterase Ur Negative LEU/UL (Negative); Nitrate Urine Negative (Negative); Specific Grav Ur 1.022 (1.001-1.035)
[2025-07-15 07:50] LABS: Hemoglobin A1C 6.1 % (<5.7)
[2025-07-15 07:59] LABS: Alanine Aminotransferase 30 U/L (6-35); Albumin Level 4.8 g/dL (3.5-5.1); Alkaline Phosphatase 111 U/L (38-126); Anion Gap 11 mmol/L (4-12); Aspartate Amino Transferase 28 U/L (14-36); Bilirubin,Total 0.6 mg/dL (0.2-1.3); Blood Urea Nitrogen 15 mg/dL (7-17); Calcium 9.6 mg/dL (8.4-10.2); Carbon Dioxide 31 mmol/L (22-30); Chloride 99 mmol/L (98-107); Cholesterol 218 mg/dL (0-200); Estimated Glomerular Filt Rate > 60; Glucose 112 mg/dL (65-110); HDL Direct 71 mg/dL; Magnesium 2.1 mg/dL (1.6-2.3); Potassium 3.0 mmol/L (3.4-5.0); Sodium 141 mmol/L (137-145); Total Protein 8.5 g/dL (6.3-8.2); Triglycerides 136 mg/dL (<150)
[2025-07-15 08:52] LABS: Vitamin B12 758.0 pg/mL (239-931)
[2025-07-15 09:38] LABS: Thyroid Stimulating Hormone Reflex 1.290 uIU/mL (0.465-4.68)
== END 2025-07-15 07:17 | disposition home or self-care (01) ==
PROVIDERS: PCP Family Medicine; Visit Provider Nurse Practitioner Family
DX: R35.0 Frequency of micturition (principal); F41.9 Anxiety disorder, unspecified; E78.5 Hyperlipidemia, unspecified; I10 Essential (primary) hypertension; R73.03 Prediabetes; E55.9 Vitamin D deficiency, unspecified; E03.9 Hypothyroidism, unspecified
CPT/HCPCS: 36415; 80053; 80061; 81003; 82306; 82607; 83036; 83735; 84443; 85025; 87086